=== PATIENT | female | born 1955 | race Caucasian/White ===

== ENCOUNTER 2017-12-15 13:14 | Outpatient (REF) | payer BC, SELFPAY ==
[2017-12-15 19:00] LABS: TSH (W/Ref FT4) 4.27 uIU/mL (0.358-3.74)
[2017-12-15 19:03] LABS: Hemoglobin A1C 7.1 % (4.5-6.2)
== END 2017-12-15 13:34 ==
LOC: NCHCN 13:14
PROVIDERS: PCP Nurse Practitioner; Visit Provider Nurse Practitioner
DX: E03.9 Hypothyroidism, unspecified (principal)
CPT/HCPCS: 83036; 84439; 84443

== ENCOUNTER 2018-07-13 12:40 | Outpatient (REF) | payer BC, SELFPAY ==
--- NOTE | 2018-07-13 12:00 | PAPFT_PTH ---
PATIENT: Shaina Puentes LOC: [facility] U#:[id number] AGE/SX: 63/F ROOM: RE07/13/[address]: Lian Ferreira : 1955 BED: DIS: 07/13/2018 SPEC #: [id number] RECD: 07/13/18 18:01 STATUS: TEDDY SLADE #: [id number] SHEELA: 07/13/18 12:[address]: Lian Ferreira DEPT: PENDING SALE TO [facility] Cytology RECD BY: Erma Meehan Tissues: 1 - CX/ENDOCX FOR PAP SMEARS Procedures: PAP THIN PREP/UVM Screening HPV DNA PROBE Comments: [id number]
== END 2018-07-13 13:00 ==
LOC: NCHCN 12:40
PROVIDERS: PCP Nurse Practitioner; Visit Provider Nurse Practitioner
DX: Z12.4 Encounter for screening for malignant neoplasm of cervix (principal); Z00.00 Encounter for general adult medical examination without abnormal findings; Z11.51 Encounter for screening for human papillomavirus (HPV)
CPT/HCPCS: 88142; 87624

== ENCOUNTER 2018-07-15 09:27 | Outpatient (REF) | payer BC, SELFPAY ==
[2018-07-15 21:21] LABS: ALT 30 U/L (12-78); AST 18 U/L (15-37); Albumin 3.9 g/dL (3.4-5.0); Alkaline Phosphatase 136 U/L (46-116); Anion Gap 12.9 mmol/L (3-11); BUN 19 mg/dL (7-18); Bilirubin, Total 0.5 mg/dL (0.2-1.0); CO2 25.1 mmol/L (21.0-32.0); CREATININE 0.63 mg/dL (0.55-1.02); Calcium 9.2 mg/dL (8.5-10.1); Chloride 102 mmol/L (98-107); Cholesterol 176 mg/dL (50-200); Glucose 165 mg/dL (70-100); HDL Cholesterol 40 mg/dL (40-60); LDL CHOLESTEROL 104 mg/dL (<100); Potassium 4.2 mmol/L (3.5-5.1); Sodium 140 mmol/L (136-145); Total Protein 7.5 g/dL (6.4-8.2); Triglyceride 151 mg/dL (30-150)
== END 2018-07-15 09:47 ==
LOC: NCHCN 09:27
PROVIDERS: PCP Nurse Practitioner; Visit Provider Nurse Practitioner
DX: E78.5 Hyperlipidemia, unspecified (principal); Z00.00 Encounter for general adult medical examination without abnormal findings
CPT/HCPCS: 80053; 80061; 83721

== ENCOUNTER 2018-08-09 01:29 | Outpatient (CLI) | payer BC, SELFPAY ==
--- NOTE | 2018-08-09 11:50 | DI.MAMMO_ITS ---
SYMPTOM/DIAGNOSIS: SCREENING, Z12.39 MAMMOGRAMS: Mammograms were interpreted according to the usual protocol including computer analysis with CAD system, tomosynthesis and C view imaging. Comparison is made with exams from [id number]. The breasts are composed of fatty density tissue, breast density, category A. No suspicious masses or suspicious microcalcifications are seen. There has been no significant change. IMPRESSION: Category 1. Negative mammogram. Yearly screening mammography is recommended. [facility] ASSESSMENT OF FINDINGS: Negative. Category 1. Patient will receive a letter notifying them of these results. BI-RAD category A. The breasts are almost entirely fatty.
--- NOTE | 2018-08-09 12:03 | DI.RAD_ITS ---
SYMPTOM/DIAGNOSIS: KNEE PAIN - JOINT, M25.569 RIGHT KNEE: The femoral tibial joint spaces are well maintained. There is mild to moderate periarticular spurring seen laterally at the tibial spine as well as patellofemoral joint. No joint effusion is visible. IMPRESSION: Mild to moderate degenerative changes.
--- NOTE | 2018-08-09 12:03 | DI.RAD_ITS ---
SYMPTOM/DIAGNOSIS: KNEE PAIN - JOINT M25.569 LEFT KNEE : Comparison is made with 13 Nov 2009. There is prominent spurring at the articular aspect of the patella. Loose bodies are seen in the suprapatellar space as well as posteriorly. There is severe narrowing of the lateral femoral tibial joint with prominent periarticular spurring. There is widening of the medial femoral tibial joint space creating valgus angulation. IMPRESSION: Severe degenerative changes of the lateral femoral tibial joint. Prominent spurring of the patellofemoral joint as well as joint space loose bodies.
== END 2018-08-09 01:49 ==
PROVIDERS: PCP Nurse Practitioner; Visit Provider Nurse Practitioner
DX: Z12.31 Encounter for screening mammogram for malignant neoplasm of breast (principal); M25.561 Pain in right knee; M25.562 Pain in left knee; M17.0 Bilateral primary osteoarthritis of knee
CPT/HCPCS: 73562; 77063; 77067

== ENCOUNTER 2018-09-08 13:13 | Outpatient (REF) | payer BC, SELFPAY ==
[2018-09-08 20:30] LABS: TSH (W/Ref FT4) 0.54 uIU/mL (0.358-3.74)
== END 2018-09-08 13:33 ==
LOC: NCHCN 13:13
PROVIDERS: PCP Nurse Practitioner; Visit Provider Nurse Practitioner
DX: E03.9 Hypothyroidism, unspecified (principal)
CPT/HCPCS: 84443

== ENCOUNTER 2018-11-08 06:14 | Day surgery (SDC) | payer BC, SELFPAY ==
[2018-11-08 06:14] VITALS: BP 145/89; PULSE 74; RESP 18; TEMP 36.5; O2SAT 99
--- NOTE | 2018-11-08 06:14 | ENDO_ITS ---
Date of service: 11/08/18 Time of Service: 07:49 Endoscopy Report DATE OF PROCEDURE: 11/08/18 PRE-OP DIAGNOSIS: Abdominal pain/ Hx of Heart Burn POST-OP DIAGNOSIS: other (mild gastritis and esophagitis, gastric polyp) PROCEDURE: EGD with biopsies SURGEON: Abril Valverde ANESTHESIA: other (General/ ASA2 /Behzad Ramos, ANGELIC) ESTIMATED BLOOD LOSS: 5 PATHOLOGY: other (Duodenal bx, Gastric bx, GE junction bx, polyp bx) COMPLICATIONS: None DISPOSITION: same day INDICATIONS: Mrs. Puentes is a 63 year old female with burning upper abdominal pain especially at night. She has had no relieve from TUMS, Zanatc and omeprazole. It is not related to food intake. Risks, benefits and complications have been reviewed. Complications include but are not limited to bleeding, pain, perforation, sore throat, aspiration, and adverse reaction to the medications. Questions were entertained and answered to their satisfaction and they wished to proceed. No guarantees were given or implied. FINDINGS: Mild Inflammation of the stomach and esophagus. Gastric polyp PROCEDURE DESCRIPTION: After informed consent was obtained the patient was take to the procedure room and placed in a supine position. Monitors were applied and a time out was done. The patients name, date of , procedure type, allergies to medications and metal in their body was reviewed. A bite block was placed and the patient was sedated. Once sedated and comfortable the gastroscope was advanced through the oropharynx which was grossly normal into the esophagus. The proximal and mid- esophagus were normal. In the distal esophagus there was mild inflammation noted. The scope was advanced into the stomach and through the pylorus into the 3rd portion of the duodenum. The duodenum was noted to be normal. Biopsies were done to rule out Celiac. The scope was retracted back into the stomach and biopsies were done to rule out H. pylori. There were no ulcers. There was mild to moderate inflammation. The scope was retro-flexed. The cardia and fundus were noted to be normal. There were a couple of flat polyps. The larger polyp was biopsied. There was no hiatal hernia noted. The scope was retracted back into the esophagus and biopsies were done of the GE junction to rule out Caballero's. The Z line was irregular. The GE junction was at 38 cm. There was mild inflammation of the esophagus. The scope was removed and the patient was woken up and taken back to [facility] in stable condition. Follow up: 2 weeks in the office
--- NOTE | 2018-11-08 06:16 | W.PM.HP.N ---
Date of service: 11/08/18 Assessment and Plan Assessment and plan (1) Abdominal pain: Status: Acute Assessment and plan: A\\ Abdominal pain, burning No improvement with antacids P\\ EGD under sedation Risks, benefits and complications have been reviewed. Complications include but are not limited to bleeding, pain, perforation, sore throat, aspiration, and adverse reaction to the medications. Questions were entertained and answered to their satisfaction and they wished to proceed. No guarantees were given or implied. Qualifiers: Abdominal location: upper abdomen, unspecified Qualified Code(s): R10.10 - Upper abdominal pain, unspecified History of Present Illness Narrative: Mrs. Puentes is a pleasant 63-year-old female who was referred to my office for upper abdominal pain. She has a history of heartburn which in the past she treated with Tums. Per primary care physician note she has tried Tums omeprazole ranitidine without any improvement in her symptoms. Patient states the pain is at nighttime when she lays on her left side. She describes the pain as a burning across her entire upper abdomen. Her pain is not related to food. She denies any nausea or vomiting. She denies weight loss, night sweats or changes in bowel habits. No changes in her health since she was seen. Review of Systems Cardiovascular Cardiovascular: Denies chest pain, Denies irregular heart rhythm, Denies palpitations and Denies dyspnea Respiratory Respiratory: Denies dyspnea Endocrine Endocrine: Denies palpitations [facility] Medical History Anxiety (Chronic) Asthma Vslmirz-Xmoec-Jdqxl disease pt. states MD does not think she has Diabetes type 2, controlled Diarrhea (Acute) Hx of bronchitis Hx of cardiac murmur diagnosed when Hyperlipidemia Hypertension Hypothyroid Neuropathy associated with Fzecaqq-Isrym-Myrqt syndrome Onychomycosis Pleural scarring chronic right chest Restless leg syndrome Tinea pedis Tubular adenoma of colon (Acute) Vitamin D deficiency Surgical History bone graft left hip Colonoscopy - MAC (08/17/17) Ligation of fallopian tube Open Carpal Tunnel release bilateral Social History Smoking/Tobacco Use Status: Former Tobacco Use Quit Date: 02/23/94 Alcohol Intake: current Alcohol Intake frequency: holidays/special occasions only Alcohol type: hard liquor Drug use: Never Substance use type: does not use Details: alcohol: t-60 Do you feel safe at home: Yes Do you feel safe in your relationship?: Yes Meds Home Medications and Allergies Home Medications Medication Instructions Recorded Confirmed Type cholecalciferol (vitamin D3) 1,000 unit PO DAILY tab.chew 06/26/15 11/08/18 History cyanocobalamin (vitamin B-12) 1,000 mcg PO DAILY 06/26/15 11/08/18 History pravastatin 20 mg PO HS tab-cap 06/26/15 11/08/18 History levothyroxine 125 mcg PO DAILY 11/15/16 11/08/18 History ropinirole 0.5 mg PO HS tab-cap NS 07/31/17 11/08/18 History losartan 25 mg tablet 25 mg PO DAILY 09/21/18 11/08/18 History acetaminophen 500 mg tablet 1,000 mg PO DAILY PRN tab 10/01/18 11/08/18 History metformin 1,000 mg tablet 1,000 mg PO BID tab 10/01/18 11/08/18 History celecoxib 100 mg capsule 100 mg PO BID #60 cap 10/22/18 11/03/18 Rx Allergies Allergy/AdvReac Type Severity Reaction Status Date / Time erythromycin base Allergy Intermediate Verified 11/08/18 06:46 Exam Resp Effort & Inspection: normal respiratory effort Auscultation: clear to auscultation bilaterally Cardio Rate: regular rate Rhythm: regular rhythm
--- NOTE | 2018-11-08 06:22 | W.PM.DSUDISC ---
Discharge Plan Disposition Patient Disposition: HOME Condition: Good Discharge Details Reason For Visit: EGD Attending Provider: Abril Valverde Primary Care Provider: Lian Ferreira Home Meds and New Rx's Prescriptions: New esomeprazole magnesium 40 mg capsule,delayed release(DR/EC) 40 mg PO DAILY Qty: 30 RF: 0 Continued losartan 25 mg tablet 25 mg PO DAILY RF: 0 acetaminophen [Tylenol Extra Strength] 500 mg tablet 1,000 mg PO DAILY PRNRF: 0 pravastatin 20 MG tablet 20 mg PO HS RF: 0 cholecalciferol (vitamin D3) 1,000 UNIT tablet,chewable 1,000 unit PO DAILY RF: 0 cyanocobalamin (vitamin B-12) 2,500 MCG tablet 1,000 mcg PO DAILY RF: 0 ropinirole 0.5 MG tablet 0.5 mg PO HS RF: 0 celecoxib [Celebrex] 100 mg capsule 100 mg PO BID Qty: 60 RF: 2 metformin [Glucophage] 1,000 mg tablet 1,000 mg PO BID RF: 0 levothyroxine 125 MCG tablet 125 mcg PO DAILY RF: 0 Discharge Instructions Instructions: Diet for Stomach Ulcers and Gastritis (GEN), Gastritis (DC), Esophagitis (DC) Additional Instructions: Findings: mild inflammation of the stomach and esophagus Follow up: 2 weeks Please call if you develop: fevers >101.5 Nausea or Vomiting Abdominal pain that is not transient DAY SURGERY UNIT POST ENDOSCOPY INSTRUCTIONS 1. Because there will be medication in your system for the next 24 hours, you may feel a little sleepy. Your coordination will be affected. Therefore: a. Do not drive or operate dangerous equipment for 24 hours. b. Do not drink alcohol beverages for 24 hours (not even beer). c. Plan to go home and rest for the day. 2. Generally there are no restrictions on your activity after a day or so has gone by, but you may feel a bit fatigued for a few days. 3 After you arrive home you may have a light meal and return to a normal diet as you can tolerate it without feeling sick to your stomach. 4. After surgery, you may feel pain or discomfort. This should be only transient, but if it persists please contact your doctor. 5. If there are any questions regarding the findings of your procedure, please feel free to contact your doctor. 6. If you are unable to contact your doctor with a problem, contact the hospital at [phone]. 5. Continue all your regular medications unless directed otherwise. I understand the above instructions and have no questions. Signature of Patient or Responsible Adult Escort Date/Time Name of Responsible Adult Escort Signature of Nurse Date/Time Activity:: Activity as Tolerated Diet:: low acid Discharge Orders Discharge Orders: Discharge Order (Routine); Ordered 11/08/18 Ordered By: Abril Valverde DS: Diagnosis Discharge Diagnosis (1) Abdominal pain: Status: Acute
[2018-11-08] MEDS: Lactated Ringers 1,000 ML 80 ML IV (07:05)
--- NOTE | 2018-11-08 07:38 | STOM_PTH ---
PATIENT: Shaina Puentes LOC: [facility] U#:[id number] AGE/SX: 63/F ROOM: RE11/08/[address]: Abril Valverde MD : 1955 BED: DIS: 11/08/2018 SPEC #: [id number] RECD: 11/08/18 12:49 STATUS: TEDDY RE #: [id number] HSEELA: 11/08/18 07:[address]: Abril Valverde DEPT: Surgical Specimen RECD BY: Erma Meehan ENTERED: 11/08/18 12:51 SP TYPE: STOMACH OTHR DR: Lian Ferreira Tissues: 1 - BIOPSY BOWEL 2 - STOMACH BIOPSY 3 - STOMACH BIOPSY 4 - ESOPHAGUS BIOPSY Procedures: GROSS AND MICRO LEVEL 4 Comments: [id number]
[2018-11-08 08:22] VITALS: BP 142/83; PULSE 79; RESP 18; TEMP 36.2; O2SAT 100
== END 2018-11-08 08:35 | disposition home or self-care (01) ==
PROVIDERS: PCP Nurse Practitioner; Visit Provider Surgery
PROC: 0DJ68ZZ Inspection of Stomach, Via Natural or Artificial Opening Endoscopic (ICD-10-PCS; CPT 43235; principal; 2018-11-08 07:30)
DX: R10.10 Upper abdominal pain, unspecified (principal); K31.89 Other diseases of stomach and duodenum; K31.7 Polyp of stomach and duodenum; K21.0 Gastro-esophageal reflux disease with esophagitis; I10 Essential (primary) hypertension; E11.42 Type 2 diabetes mellitus with diabetic polyneuropathy
CPT/HCPCS: 43239; 88305; NC

== ENCOUNTER 2019-03-07 12:50 | Outpatient (REF) | payer BC, SELFPAY ==
[2019-03-07 16:02] LABS: COMMENT (LAB VIEW ONLY) 160.99 mg/dL
== END 2019-03-07 13:10 ==
LOC: NCHCN 12:50
PROVIDERS: PCP Nurse Practitioner; Visit Provider Nurse Practitioner
DX: E11.9 Type 2 diabetes mellitus without complications (principal)
CPT/HCPCS: 82043; 82570

== ENCOUNTER 2019-07-21 14:47 | Outpatient (REF) | payer BC, SELFPAY ==
[2019-07-23 12:03] LABS: COVID-19 RT-PCR UVMMC Result Negative (Negative)
== END 2019-07-21 15:07 ==
LOC: NCHCN 14:47
PROVIDERS: PCP Nurse Practitioner; Visit Provider Nurse Practitioner Family
DX: Z11.59 Encounter for screening for other viral diseases (principal)
CPT/HCPCS: U0003

== ENCOUNTER 2020-02-16 00:37 | Outpatient (CLI) | payer MEDICAID, SELFPAY ==
--- NOTE | 2020-02-16 07:15 | DI.MRI_ITS ---
EXAM: MR LOWER JOINT RT WO CLINICAL HISTORY: OA RT KNEE, RT KNEE PAIN,M17.11. TECHNIQUE: Multiplanar multisequence MRI was performed. COMPARISON: No exams were available for comparison FINDINGS: BONES: There is no fracture or contusion pattern. JOINTS: In the lateral femoral tibial joint and the patellofemoral joint, there is subchondral marrow edema, thinning of the articular cartilage and periarticular spurring consistent with osteoarthritis . There is a subchondral cyst in the medial tibial plateau. There is a large joint effusion. TENDONS: Extensor mechanism: Unremarkable. Medial retinaculum: Unremarkable. Lateral retinaculum: Unremarkable. Popliteus: Unremarkable. MUSCLES: Unremarkable. MENISCI: The medial meniscus is unremarkable. There is hyperintense signal seen in the anterior horn and body of the lateral meniscus. There is loss of size of the anterior horn of the lateral meniscu s. These findings are seen of degeneration and tear. SOFT TISSUES: There is mild edema in the soft tissues anterior to the knee. LIGAMENTS: Anterior Cruciate: Unremarkable. Posterior Cruciate: Unremarkable. Medial Collateral:Unremarkable. Lateral Collateral: Unremarkable. OTHER: There is a large popliteal cyst. IMPRESSION: 1. Degenerative changes in the patellofemoral and lateral femoral tibial joint. 2. Findings consistent with degeneration and tear of the lateral meniscus. 3. Large popliteal cyst. 4. No evidence of a ligament tear. DATA REPOSITORY:
== END 2020-02-16 00:57 ==
PROVIDERS: PCP Nurse Practitioner; Visit Provider Student in an Organized Health Care Education/Training Program
DX: M17.11 Unilateral primary osteoarthritis, right knee (principal); M71.21 Synovial cyst of popliteal space [Baker], right knee
CPT/HCPCS: 73721

== ENCOUNTER 2020-03-08 14:17 | Outpatient (CLI) | payer MEDICAID, SELFPAY ==
--- NOTE | 2020-03-08 13:15 | DI.RAD_ITS ---
EXAM: XR ANKLE LT COMPLETE CLINICAL HISTORY: L ankle injury TECHNIQUE: COMPARISON: No exams were available for comparison FINDINGS: Three views were obtained. No prior films available for comparison. The ankle mortise appears fairl y well maintained. Mild marginal osteophyte formation noted involving the joints of the ankle. Ther e is an irregular calcific or ossific density adjacent to the tip of the medial malleolus, degenerati ve change versus new or old avulsion at this site, please correlate clinically. No additional findings suspicious for fracture. IMPRESSION: RADIATION DOSE DELIVERED: Total DLP
== END 2020-03-08 14:37 ==
PROVIDERS: PCP Nurse Practitioner; Referring Provider Nurse Practitioner; Visit Provider Physician Assistant
DX: S93.492A Sprain of other ligament of left ankle, initial encounter (principal)
CPT/HCPCS: 73610

== ENCOUNTER 2020-04-12 11:56 | Outpatient (CLI) | payer MEDICAID, SELFPAY ==
--- NOTE | 2020-04-12 10:00 | DI.RAD_ITS ---
EXAM: XR STANDING ALIGNMENT CLINICAL HISTORY: OA L knee surgical planning. TECHNIQUE: 2D digital imaging was performed. COMPARISON: CR XR knee RT 3V AP,lat,blaise from 08/09/2018 CR XR knee LT 3V AP,lat,blaise from 08/09/2018 CR XR knee RT 3V AP,lat,blaise from 08/09/2018 There are no fractures. Valgus deformity at level the knees noted. Significant narrowing of the lat eral compartment of the left knee is noted. Marginal osteophytes off the lateral compartments of bot h knees noted. Hips appear unremarkable. No osseous lesions evident. FINDINGS: IMPRESSION: DATA REPOSITORY: RADIATION DOSE DELIVERED:
== END 2020-04-12 11:57 | disposition home or self-care (01) ==
LOC: DIORS 11:57
PROVIDERS: PCP Nurse Practitioner; Referring Provider Nurse Practitioner; Visit Provider Physician Assistant
DX: M25.562 Pain in left knee (principal); M17.12 Unilateral primary osteoarthritis, left knee
CPT/HCPCS: 77073

== ENCOUNTER 2020-04-13 02:00 | Outpatient (CLI) | payer MEDICAID, SELFPAY ==
[2020-04-13 10:53] LABS: HCT 38.4 % (36.0-46.0); HGB 12.2 g/dL (11.2-15.7); MCH 29.1 pg (27.0-33.0); MCHC 31.8 % (32.0-36.0); MCV 91.6 fL (80-95); MPV 10.3 fL (8.0-11.0); Platelet Count 291 10^3/uL (130-400); RBC 4.19 10^6/uL (3.93-5.22); RDW 13.9 % (11.7-14.6); RDW-SD 47.1 fL; WBC 8.49 10^3/uL (4.4-10.8)
[2020-04-13 11:28] LABS: Anion Gap 10.4 mmol/L (3-11); BUN 14 mg/dL (7-18); CO2 29.6 mmol/L (21.0-32.0); CREATININE 0.6 mg/dL (0.55-1.02); Calcium 9.3 mg/dL (8.5-10.1); Chloride 101 mmol/L (98-107); Glucose 172 mg/dL (74-106); Potassium 4.3 mmol/L (3.5-5.1); Sodium 141 mmol/L (136-145)
[2020-04-13 12:02] LABS: Hemoglobin A1C 7.9 % (<5.7)
[2020-04-14 13:58] LABS: COVID-19 RT-PCR UVMMC Result Negative (Negative)
== END 2020-04-13 02:01 | disposition home or self-care (01) ==
LOC: LBO 02:00
PROVIDERS: Physician Assistant; PCP Nurse Practitioner; Visit Provider Student in an Organized Health Care Education/Training Program
DX: M25.562 Pain in left knee (principal); M17.12 Unilateral primary osteoarthritis, left knee; Z20.822 Contact with and (suspected) exposure to COVID-19; E11.9 Type 2 diabetes mellitus without complications; Z01.818 Encounter for other preprocedural examination; Z01.812 Encounter for preprocedural laboratory examination
CPT/HCPCS: 36415; 80048; 85027; U0003; 83036

== ENCOUNTER 2020-04-18 05:55 | Day surgery (SDC) | payer MEDICAID, SELFPAY ==
[2020-04-18] VITALS (14 sets, daily range): BP systolic 108–162; BP diastolic 66–111; PULSE 76–97; RESP 10–22; TEMP 36–36.4; O2SAT 91–98
[2020-04-18] MEDS: Acetaminophen 500 MG TAB 1000 MG PO ×2 (06:22→15:01)
[2020-04-18] MEDS: Celecoxib 200 MG CAP 400 MG PO (06:22)
[2020-04-18] MEDS: Gabapentin 300 MG CAP PO (06:22)
[2020-04-18] MEDS: Lactated Ringers 1,000 ML 30 ML IV (06:45)
--- NOTE | 2020-04-18 07:22 | PDOC.DSDIS_ITS ---
Discharge Plan Disposition Patient Disposition: HOME Condition: Good Discharge Details Reason For Visit: Left Knee DJD Attending Provider: Seymour Shields Primary Care Provider: Lian Ferreira Home Meds and New Rx's Prescriptions: New acetaminophen 500 mg tablet 1,000 mg PO Q8H PRN (Reason: pain) Qty: 90 RF: 3 aspirin 81 mg tablet,delayed release (DR/EC) 81 mg PO BID Qty: 60 RF: 0 docusate sodium [Colace] 100 mg capsule 100 mg PO BID PRNQty: 10 RF: 0 gabapentin 300 mg capsule 300 mg PO QHS Qty: 14 RF: 0 oxycodone 5 mg tablet 5 mg PO Q4H Qty: 18 RF: 0 pantoprazole 40 mg tablet,delayed release (DR/EC) 40 mg PO DAILY Qty: 30 RF: 0 naproxen 500 mg tablet 500 mg PO BID PRNQty: 60 RF: 0 Continued losartan 25 mg tablet 25 mg PO DAILY RF: 0 pravastatin 20 MG tablet 20 mg PO HS RF: 0 cholecalciferol (vitamin D3) 1,000 UNIT tablet,chewable 1,000 unit PO DAILY RF: 0 cyanocobalamin (vitamin B-12) 2,500 MCG tablet 1,000 mcg PO DAILY RF: 0 ropinirole 0.5 mg tablet 2 mg PO HS RF: 0 metformin [Glucophage] 1,000 mg tablet 1,000 mg PO BID RF: 0 levothyroxine 125 MCG tablet 125 mcg PO DAILY RF: 0 Discontinued acetaminophen [Tylenol Extra Strength] 500 mg tablet 1,000 mg PO DAILY PRNRF: 0 gabapentin 100 mg Tablet 100 mg PO QHS RF: 0 naproxen sodium [Aleve] 220 mg Capsule 220 mg PO BID PRNRF: 0 No Action tramadol 50 mg tablet 50 mg PO Q8H PRN (Reason: pain) Qty: 30 RF: 0 Discharge Instructions Additional Instructions: Total Knee Discharge Instructions Activity: The most important activity is to walk. You should try to take short walks a few times a day. It is important that when resting you work on keeping the knee straight. Avoid putting a pillow behind the knee as this will encourage flexion. Work on range of motion exercises as provided by Physical Therapy. - Start outpatient physical therapy within 2 weeks. - You should wear the RUSTY hose on both legs for 2 weeks. You may remove these at night. You may also use any compression sock in place of the RUSTY hose. Dressing: You may remove the Juan Antonio wrap on your leg 2 days after your surgery and put on the RUSTY stocking given to you from the hospital. Keep the surgical dressing (underneath the JUAN ANTONIO wrap) in place for at least one week. After the first week it may be removed and replaced with light gauze and tape or nothing. The wound and dressing may get wet after 3 days but avoid soaking the dressing or otherwise it will need to be changed. Many people prefer covering the dressing with cling wrap (saran wrap) to minimize it from getting soaked. If it gets wet, just pat dry. If it starts to peel off then it will need to be changed. Medications: - You should take Tylenol and anti-inflammatory Naproxen as your primary pain control medications. If the Celebrex is too expensive or not covered, please call the office for another alternative (Advil/Ibuprofen or Naproxen/Aleve) - You have been prescribed a stronger pain medication Oxycodone for breakthrough pain, take as needed as prescribed. - You have also been prescribed a stomach acid reduction agent Pantoprozole to help reduce stomach acid and reflux. - You have been prescribed Gabapentin 300mg to take at nighttime. This will replace your typical 100mg Gabapentin. After 2 weeks, when you have completed the 300mg dosing prescribed, you may return to the 100mg at bedtime - You will be taking Aspirin 81mg twice a day for DVT prevention unless instructed otherwise. - If you have constipation you should take Colace or Miralax (both [id number]). It takes most people 3-4 days to have a bowel movement. Follow-up: 2 weeks If you have any acute concerns or questions, please do not hesitate to contact the office at [phone]. You may contact Dr. Shields with any questions after hours through the hospital at [phone] or on his cell phone at [phone]. Stand Alone Forms: Anesthesia Discharge Inst., Anes.Nerve Block Instructions, DSU Post op Instructions, Tonya Morse (DSU) Referrals: Seymour Shields MD [ [facility] STAFF PHYSICIAN] - Equipment/Supplies: Walker Activity:: Elevate Shower/Bathe:: 72 hours Diet:: As Tolerated Discharge Orders Discharge Orders: Discharge Order (Routine); Ordered 04/18/20 Ordered By: Seymour Shields DS: Diagnosis Discharge Diagnosis (1) Unilateral primary osteoarthritis, left knee: Status: Chronic
[2020-04-18] MEDS: ceFAZolin 2 GM/50 ML BAG IVPB (07:39)
[2020-04-18] MEDS: Bupivacaine 0.25% Pres-Free 30 ML VIAL (08:14)
[2020-04-18] MEDS: Ketorolac 30 MG/ML VIAL (08:14)
[2020-04-18] MEDS: Normal Saline 20 ML VIAL (08:15)
[2020-04-18] MEDS: HYDROmorphone 2 MG/ML VIAL IVP ×3 (10:04→11:00)
--- NOTE | 2020-04-18 10:56 | ROE_ITS ---
Date of service: 04/18/20 Time of Service: 09:28 Operative Note Operative Note DATE OF PROCEDURE: 04/18/20 PRE-OP DIAGNOSIS: Left Knee Osteoarthritis POST-OP DIAGNOSIS: same PROCEDURE: Left Total Knee Replacement SURGEON: Seymour Shields VIRTUAL ASSISTANT FOR ADVERTISERS: Cassia Montalvo ANESTHESIA TYPE: Spinal Refer to Anesthesia Record ESTIMATED BLOOD LOSS: 200 PATHOLOGY: none sent TOURNIQUET TIME: 32 COMPLICATIONS: None Patient was transported to: PACU Patient's condition: stable Implants: 1. Depuy Attune Posterior Stabilized Femoral Component, Size 5 Narrow 2. Depuy Attune Rotating Platform Tibial Component, Size 3 3. Depuy Attune 5x8mm RP/PS Poly 4. Depuy Attune Patellar Component, Size 35mm Indications: I have seen Shaina in clinic for symptoms of LEFT knee arthritis, confirmed with radiographic findings. Shaina has exhausted nonoperative methods and was having significant limitations in daily function and desired better function and less pain. I discussed the technical details of a knee replacement. I explained the risks of the procedure to include, but not limited to, bleeding, infection, pain, stiffness, fracture, damage to nerves and vessels, damage to muscles and tendons, loosening, need for repeat procedure, blood clot and cardiopulmonary demise. Despite these risks, she elected to proceed. Findings: There was significant signs of arthritis throughout the knee, most notably of the posterolateral knee but there was also a full thickness defect of the medial femur.. Procedure Description: Shaina was greeted in the preoperative holding area where the correct side was identified and marked. The consent was reviewed with the patient and signed. The history and physical was updated. All questions were answered. Preoperative mediacations were administered: Acetaminophen 1000mg, Celebrex 400mg, and Gabapentin 300mg. An adductor canal block was then administered by the anesthesia team in the PACU. Shaina was taken back to the operating room. A spinal anesthestic was then administered. The patient was placed into the supine position on the operating room table. A nonsterile tourniquet was placed high onto the leg but only used for cementing. Posts were placed for positioning during the procedure. All bony prominences were well padded. Prophylactic antibiotics in the form of Cefazolin were administered. 1g of Tranxemic Acid was given intravenously within 30 minutes of incision. The left leg was then prepped with Chloraprep and draped in a standard fashion with impervious stockinette and extremity drape with Iodine impregnated skin protection. A timeout to confirm correct identity, side and site, procedure, allergies, anesthesia, and medical concerns was performed. With the knee in some flexion, a midline incision was made overlying the knee. Full thickness skin flaps were raised once the extensor mechanism was encountered. These were raised medially and laterally. Any bleeding was controlled with electrocautery. Once the extensor mechanism was fully exposed, a medial parapatellar arthrotomy was performed in a flexed position. All bleeding from the arthrotomy and the geniculate arteries was coagulated. A medial subperiosteal peel was performed with electrocautery to the midcoronal plane. The fat pad was removed while keeping the patellar tendon protected. The anterior distal femur synovium was removed for later visualization. The ACL and PCL were resected and the anterior horn of the lateral meniscus was transected. The knee was then flexed with the patella everted. Large osteophytes from the tibia were removed. Large osteophytes from the femur were removed. There was notable arthritis of the lateral tibia and there was also a full thickness chondral defect. A single starting pin was then placed 1cm anterior to the PCL insertion and the notch in the direction of the femoral head. The OrthoAlign device was applied over the pin. It was oriented to be in line with the epicondylar axis and the trochlear groove. It was then pinned into place. The navigation computer was then turned on and calibrated. The distal femur cut was set at 0 degrees varus/valgus and 2.5 degrees flexion. The distal femur cutting guide then was positioned for a 9mm cut. The distal femur was cut with an oscillating saw while protecting the soft tissues. The tibia was then addressed. The OrthoAlign device was placed over the tibial tubercle and medial tibia and secured into position. Once again, OrthoAlign was calibrated and then set for a 0 degree varus/valgus cut and 3 degrees of po sterior slope. With this locked into position, the cut thickness stylus was used to assess cut thickness. The lateral side, most involved side, was set for a 4mm cut. This was then held in position and pinned into place with 2 additional pins and a cross pin for stability. The medial and lateral collateral ligaments were protected and the cut was performed. With this completed, it was assessed and noted to be of appropriate dimensions. The guide and OrthoAlign was removed. A spacer block was inserted and the knee was brought into extension. The 7mm spacer block provided full extension, without hyperextension and with stability of both the medial and lateral collateral ligaments was assessed. The pins from the femur and the tibia were then removed. The distal femur was then sized. The anterior stylus was placed onto the lateral ridge of the anterior femur. This indicated a size 5 narrow femur. The external rotation of the guide was adjusted to 0 degrees to match the epicond ylar axis, perpendicular to Allardt?s line. The 4-in-1 cutting guide was the placed. The posterior medial femur cut was evaluated and appeared of good thickness. The spacer block was inserted underneath the cutting guide and stability was confirmed in 90 degrees of flexion. An grant wing was used to confirm appropriate position of the anterior cut to avoid notching. This cutting guide was ensured to be flush on the cut surface and then pinned into place with headed pins. While protecting the soft tissues, quad tendon, and collateral ligaments, the anterior and posterior cuts were performed with a saw. The central two pins were removed and the posterior and anterior chamfers were cut next. The notch-cutting guide was placed. This was pinned to lateralize the femoral component as much as possible while keeping it flush on the cut surface. This was then pinned into position. A reciprocating saw was used to make the notch cut. A rasp smoothed the cut surfaces. A trial posterior stabilized femoral component was then inserted, impacted down to the cut surfaces, and the lug holes were drilled. A provisional trial tibial component was placed and the knee was brought through range of motion. The polyethylene was trialed until there was good flexion and extension with excellent stability to the medial and lateral collaterals. The patella was tracking without thumbs. The tibial cut surface was fully exposed. The medial and lateral menisci were removed. The tibia was then sized as a 3. The tibia had been previously marked during trialing to correspond to the center of the tibial component to help with rotation. The trial was aligned to this cassia, approximately rotated to the medial 1/3rd of the tibial tubercle. The trial was pinned into place. The tibia was prepared with a reamer and a keel punch. The knee was then brought into extension and the patella was measured as 23mm. Using the patellar clamp and cut guide, this was resected to a flat surface with at least 13mm of thickness remaining. The size 35 patella fit the best. This was oriented and then clamped into position. The lugs were drilled. The trial components were removed. The final components, except for the polyethylene were opened on the back table. The periosteal and capsular tissues, especially posteriorly, around the knee were then systematically injected with a periarticular cocktail consisting of 50cc 0.25% Marcaine, 30mg Ketorolac, 20cc of Exparal and 50cc of injectable saline. The tourniquet was then inflated to 275mmHg. The knee was thoroughly irrigated with a pulse lavage and dried. On the back table, with the implants opened, the cement was mixed. 2 batches of antibiotic laden medium viscosity cement were prepared with vacuum assistance. After the cement was ready a small amount was placed on to the back side of the tibial component at the keel. A small amount was placed onto the posterior flange of the femur. Cement was manual pressurized and impregnated into the cut surface of the tibia. The tibial component was then inserted into the cut surface and impacted into position. Excess cement was removed and the component was reimpacted. Again, excess cement was removed and our attention was then turned to the femur. The femoral cut surface was once again dried and cement was manually impacted into the cut surface. The femoral component was lined with the lug holes and impacted. Excess cement was removed. It was ensured to be down against the cut surface. The trial polyethylene was then inserted and the leg was brought out into full extension for the duration of the cement curing process, approximately 18min. Cement was lastly manually impacted into the cut surface of the patella and the patellar button was clamped into position and held. During this process attention was turned to the gutters of the knee and for all interfaces for any excess cement. After the cement had finally cured, approximately 18min, the clamp was removed from the patella and the knee was taken through range of motion. A size 8mm polyethylene component provided the best range of motion and stability with less than 2mm gapping with medial and lateral stress and full extension without significant hyperextension. The patella was tracking with a no-thumbs technique. The trial poly was removed and once again the knee was checked for any loose, excess, or errant cement. The poly component was then inserted and impacted into position after cleaning and drying the tibial tray. The capsule was then reapproximated with a No. 1 Vicryl at multiple locations. The capsule was finally closed with a No. 2 Stratafix, barbed suture. The tourniquet was then released and the arthrotomy appeared watertight without significant bleeding. The second dosing of 1g TXA was started. Deep tissues were then reapproximated with 0 Vicryl and 2-0 Vicryl. The skin was closed with a running 3-0 Monocryl in a subcuticular fashion. This was reinforced with skin glue. A Mepilex silver dressing was applied along with a [id number] ELMER wrap. A CryoCuff was applied. Shaina was transferred to the hospital bed without difficulty an suffering no apparent complication. Shaina has a good prognosis. Physical therapy will start today and without restrictions, weight-bearing as tolerated. Aspirin 81mg BID will be used for DVT prophylaxis.
--- NOTE | 2020-04-18 11:10 | IN_ITS ---
Date of service: 04/18/20 Time of Service: 13:10 PT Notes Visit Reasons: Left Knee DJD Physical Therapy Day Surgery Initial Evaluation Date: 04/18/2020 Referring Doctor: Seymour Shields MD PT Orders: PT CONSULT: Status post Ortho surgery. Status post left TKA. Precautions: WBAT on left LE. Patient Profile/Admitting Diagnosis: Shaina is a 65-year-old female with unilateral primary osteoarthritis of the left knee and is status post left total knee arthroplasty on postoperative day 0. PMHX: Medical History Anxiety Asthma Bxgewgh-Opydm-Elyde disease pt. states MD does not think she has Diabetes type 2, controlled Diarrhea Hx of bronchitis Hx of cardiac murmur diagnosed when Hyperlipidemia Hypertension Hypothyroid Neuropathy associated with Gmsmyas-Iddmx-Rricr syndrome Onychomycosis Osteoarthritis of right knee Injection: 12/15/2019 Pleural scarring chronic right chest Restless leg syndrome Tinea pedis Tubular adenoma of colon Vitamin D deficiency Surgical History bone graft left hip Colonoscopy - MAC (08/17/17) Ligation of fallopian tube Open Carpal Tunnel release bilateral Social History/Home Situation: Shaina lives in a private home with 3 steps to enter with a rail on the right side going up. 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 Independent with all mobility ADL performance prior to surgery. Equipment Owned/DME: Front wheeled walker, bilateral axillary crutches, single- point cane Subjective: Agreeable to PT consult. Denies headache, chest pain, dizziness throughout session. Reports pulling sensation on the left lateral and posterior leg during ambulation activity. Objective: General Observation: Supine on stretcher. ELMER wraps on left LE. Cryocuff on left knee. TEDS on right leg. IV access in L UE. Mental Status: Alert and oriented x4 Pain: None ROM: Right Upper Extremity: Shoulder Flexion WFL. Shoulder abduction WFL. Elbow flexion WFL. Wrist flexion WFL. Functional opening and closing of hand WFL. Left Upper Extremity: Shoulder Flexion WFL. Shoulder abduction WFL. Elbow flexion WFL. Wrist flexion WFL. Functional opening and closing of hand WFL. Right Lower Extremity: Hip flexion WFL. Hip abduction WFL. Knee flexion WFL. Ankle dorsiflexion WFL. Ankle plantarflexion WFL. Left Lower Extremity: Hip flexion WFL. Hip abduction WFL. Knee flexion 10 degrees to 95 degrees. Knee extension -10 degrees. Ankle dorsiflexion to neutral only. Ankle plantarflexion WFL. Strength: Right Upper Extremity: Shoulder flexors 4/5. Shoulder abductors 4/5. Elbow flexors 4/5. Elbow extensors 4/5. [facility] strong. Left Upper Extremity: Shoulder flexors 4/5. Shoulder abductors 4/5. Elbow flexors 4/5. Elbow extensors 4/5. [facility] strong. Right Lower Extremity: Hip flexors 5/5. Hip abductors 5/5. Knee flexors 5/5. Knee extensors 5/5. Ankle dorsiflexors 5/5. Ankle plantarflexors 5/5. Left Lower Extremity:Hip flexors 4/5. Hip abductors 4/5. Knee flexors 3-/5. Knee extensors 3-/5. Ankle dorsiflexors 3-/5. Ankle plantarflexors 5/5. Sensation: Denies numbnessa and tingling. Intact as to pain and light touch on bilateral lower extremities. Bed Mobility/Transfers: Supine to sit independent Sit to stand supervision Stand to sit supervision Bed to chair supervision Gait: Guided patient through level surface ambulation of 200 feet +100 feet using front wheel walker with step through heel?toe gait pattern requiring only standby assist of PT and nurse Linn. Reported a pulling sensation on the lateral and posterior left knee that subsided with rest. Stairs: Training patient with safe strategies for negotiating gait 6 inch steps with the right hand holding onto the rail on the right going up and with the left UE supported by crutches (vice versa for going down) requiring contact- guard assist of PT and standby assist Nurse Linn and Nurse Chowdhury. Balance: Static Sitting: Normal Dynamic Sitting: Normal Static Standing: Fair Dynamic Standing: Fair Special Tests: Mobility Limitations Standardized Measure [facility] AM-PAC 6 clicks Basic Mobility Inpatient Short Form: Raw Score: 23 CMS Score: 11% deficit Informed Consent/Education: Patient instructed in purpose of PT consult. Packet containing TKA exercise protocol has been given to patient. Education and training on initial set of exercises that can be done at home have been completed with patient. Assessment: Shaina demonstrates the need for the use of a front wheel walker for all mobility ADL performance to increase independence and reduce fall risk at home. She will benefit from outpatient PT services to facilitate return to independent community ambulation without assistive device. Patient presents with clinical signs and symptoms consistent with current/admitting diagnoses that have resulted to mobility limitations, gait instability, generalized weakness, and impairment of motor control as demonstrated by the following impairment level findings: 1. Decreased strength to left knee major muscle groups 2. Impaired standing balance 3. Limitation of joint range of motion in left knee Impairments are contributing to the following functional limitations: 1. Inability to safely ambulate without assistive device 2. Increase completion time for mobility ADL performance Patient is assessed as a 91373 moderate complexity based on the following: History: 65 kaznxgar-wrti-ksq female with impairment level findings, functional limitations, and past medical history as indicated above Examination: Demonstrable impairment in strength, balance, and mobility level with underlying impairments and functional limitations as documented above Presentation: Decision Makin moderate complexity Goals: N/A. PT evaluation and 1-2 treatment sessions only for functional mobility training using recommended AD and for HEP instruction. Plan of Care/Treatment Plan: N/A. PT evaluation and 1-2 treatment sessions only for functional mobility training using recommended AD and for HEP instruction. PT INTERVENTION RECEIVED TODAY: Assessment for and fitting of appropriate assistive device. Guided patient through bed mobility, transfers, and mobility ADL performance on level surfaces and stairs using front wheeled walker and single crutch in order to reduce fall risk. Educated and trained patient on HEP performance to maximize post-surgical functional outcomes. Educated on the use of Cryocuff device. DISCHARGE RECOMMENDATIONS: Home when medically cleared by orthopedic surgeon. Outpatient PT services to facilitate to independent community ambulation without an assistive device. TREATMENT CODE/TIME: 51885 x 30 minutes, 29700 x3 3 minutes beginning at 13:10 PM. Thank you for the opportunity to participate in the care of this patient. Gayatri Haynes PT, DPT, CLT [facility] [place], [place]
== END 2020-04-18 16:15 | disposition home or self-care (01) ==
PROVIDERS: PCP Nurse Practitioner; Visit Provider Student in an Organized Health Care Education/Training Program
PROC: (CPT 27447; principal; 2020-04-18 07:30)
DX: M17.12 Unilateral primary osteoarthritis, left knee (principal); M25.562 Pain in left knee; Z96.652 Presence of left artificial knee joint; G89.18 Other acute postprocedural pain; E11.9 Type 2 diabetes mellitus without complications; K21.9 Gastro-esophageal reflux disease without esophagitis
CPT/HCPCS: 27447; C1776; 76942; 97162; 97530; J0690; J1100; J1885; J2001; J2405; J2704

== ENCOUNTER 2020-05-03 15:36 | Outpatient (CLI) | payer MEDICAID, SELFPAY ==
--- NOTE | 2020-05-03 14:15 | DI.RAD_ITS ---
EXAM: XR STANDING ALIGNMENT and XR knee left one-view CLINICAL HISTORY: 1ST POST OP L TKA. TECHNIQUE: 2D digital imaging was performed. COMPARISON: CR XR STANDING ALIGNMENT from 04/12/2020 CR XR KNEE LT 1V from 05/03/2020 FINDINGS: Since the prior examination the patient has undergone a left total knee replacement. The hips are we ll maintained. The left total knee replacement appears in good position. The soft tissues are unrem arkable. Mild degenerative changes are seen in the right knee with periarticular spurring in the lat eral femoral tibial joint. The right lower extremity measures 84.5 cm. The left lower extremity elif sures 83.4 cm. IMPRESSION: Status post left TKR. DATA REPOSITORY: RADIATION DOSE DELIVERED:
== END 2020-05-03 15:37 | disposition home or self-care (01) ==
LOC: DIORS 15:36
PROVIDERS: PCP Nurse Practitioner; Referring Provider Nurse Practitioner; Visit Provider Physician Assistant
DX: Z96.652 Presence of left artificial knee joint (principal)
CPT/HCPCS: 73560; 77073

== ENCOUNTER 2020-09-05 13:07 | Outpatient (REF) | payer MEDICAID, SELFPAY ==
[2020-09-05 14:52] LABS: HCT 38.3 % (36.0-46.0); HGB 11.8 g/dL (11.2-15.7); MCH 28.1 pg (27.0-33.0); MCHC 30.8 % (32.0-36.0); MCV 91.2 fL (80-95); MPV 11.1 fL (8.0-11.0); Platelet Count 282 10^3/uL (130-400); RDW 15.9 % (11.7-14.6); RDW-SD 52.7 fL
[2020-09-05 15:17] LABS: ALT 33 U/L (14-59); AST 23 U/L (15-37); Alkaline Phosphatase 136 U/L (46-116); Anion Gap 8.9 mmol/L (3-11); BUN 10 mg/dL (7-18); Bilirubin, Total 0.4 mg/dL (0.2-1.0); CO2 29.1 mmol/L (21.0-32.0); CREATININE 0.6 mg/dL (0.55-1.02); Calcium 9.5 mg/dL (8.5-10.1); Chloride 104 mmol/L (98-107); Ferritin 23 ng/mL (8-252); Glucose 147 mg/dL (74-106); NT-proBNP 15 pg/mL (<300); Potassium 4.2 mmol/L (3.5-5.1); Sodium 142 mmol/L (136-145); TSH (W/Ref FT4) 9.75 uIU/mL (0.36-3.74); Total Protein 7.5 g/dL (6.4-8.2)
[2020-09-05 20:15] LABS: COMMENT (LAB VIEW ONLY) 73.02 mg/dL; Microalb ug/mg Crea 26.4 ug/mg Cr
[2020-09-06 09:37] LABS: HIV-1/2 Ag & Ab Screen Negative (Negative)
[2020-09-06 10:38] LABS: Hepatitis C Ab w Rflx HCV PCR Negative (Negative)
== END 2020-09-05 13:08 | disposition home or self-care (01) ==
LOC: NCHCN 13:07
PROVIDERS: PCP Nurse Practitioner; Visit Provider Family Medicine
DX: R06.00 Dyspnea, unspecified (principal); E11.9 Type 2 diabetes mellitus without complications; E03.9 Hypothyroidism, unspecified
CPT/HCPCS: 80053; 85027; 86803; 87389; 82043; 82570; 82728; 83880; 84439; 84443

== ENCOUNTER 2020-09-14 01:51 | Outpatient (CLI) | payer MEDICAID, SELFPAY ==
[2020-09-14] MEDS: Albuterol HFA 18 GM 200 PUFF INH IH (08:49)
[2020-09-14] MEDS: Inhaler, Assist Device 1 EACH MC (08:50)
--- NOTE | 2020-09-14 15:31 | W.PFT ---
Date of service: 09/14/20 Time of Service: 08:16 Pulmonary Function Test Result Interpretation Spirometry: There is no airflow limitation. There is a reduced FVC and FEV1. There is no significant improvement with bronchodilator therapy. Lung Volumes: There is mildly reduced lung volumes. Diffusion Capacity: Diffusion is within normal limits. Airway Pressure: Airway resistance as measured by sGaw is within normal limits. Impression Pulmonary function testing is consistent with mild restrictive disease. Recommend clinical correlation.
== END 2020-09-14 01:52 | disposition home or self-care (01) ==
PROVIDERS: PCP Nurse Practitioner; Visit Provider Student in an Organized Health Care Education/Training Program
DX: J92.9 Pleural plaque without asbestos (principal); R06.09 Other forms of dyspnea; J98.4 Other disorders of lung
CPT/HCPCS: 94060; 94726; 94729

== ENCOUNTER 2020-09-17 00:53 | Outpatient (CLI) | payer MEDICAID, SELFPAY ==
--- NOTE | 2020-09-17 07:00 | DI.CT_ITS ---
Exam(s) CT CHEST W EXAM: CT CHEST W CLINICAL HISTORY: Assess right sided pleural thickening ?fibrothorax,DYSPNEA ON EXERTION,. TECHNIQUE: Multi planar reconstructions were performed. CONTRAST MATERIAL: Omnipaque 350; 70 cc COMPARISON: CR CHEST 2 VIEWS PA,LAT from 11/15/2016 FINDINGS: CHEST: LUNGS: There is significantly decreased right hemithoracic volume and heavily calcified pleural plaqu e on the right side is again noted, as seen on chest x-ray of October 2016. There is also pleural- based density in the right lower lobe extending from the inferior aspect of the hilum out to the calc ified pleural surface. This measures 1.9 cm wide by 3.9 cm. This may represent rounded atelectasis in the right lung base. On the opposite-left side there is pulmonary hyperinflation-over expansion/compensatory. There are n o cysts seen focal abnormalities evident in left lung. No pleural effusions MEDIASTINUM: There is no hilar nor mediastinal adenopathy. Visualized thyroid unremarkable. CARDIAC: Heart size is normal. There is no pericardial effusion.Thoracic aortic caliber is within no rmal limits. Sending thoracic aorta measures 3.1 cm. No dissection. VISUALIZED UPPER ABDOMEN:There are no significant adrenal masses. Hepatic steatosis noted. OSSEOUS: No significant osseous lesions.. IMPRESSION: 1. Findings on the CT scan are similar to chest x-ray findings of 11/15/2016. There is decreased rig ht hemithoracic volume and right pleural thickening and heavy calcification as well as mass versus ro unded atelectasis in the right lung base. 2. Compensatory overinflation left lung noted. No focal left lung findings and no pleural effusion n o pleural findings in left lung. 3. Hepatic steatosis. RADIATION DOSE DELIVERED: 482.83mGy.cm Total DLP DATA REPOSITORY: All CT scans at this facility are submitted to the National Radiology Data Registry (NRDR) Dose Index Registry (DIR) with the [employer] (A[employer]). RADIATION OPTIMIZATION: All CT scans at this facility use at least one of these dose optimization te chniques: automated exposure control; mA and/or kV adjustment per patient size (includes targeted exa ms where dose is matched to clinical indication); or iterative reconstruction.
[2020-09-17] MEDS: Omnipaque 350 MG/ML 100 ML BTL 70 ML IJ (08:56)
[2020-09-17] MEDS: Normal Saline - Diluent 50 ML VIAL IV (08:57)
== END 2020-09-17 01:13 ==
PROVIDERS: PCP Nurse Practitioner; Visit Provider Student in an Organized Health Care Education/Training Program
DX: R06.00 Dyspnea, unspecified (principal); K76.0 Fatty (change of) liver, not elsewhere classified
CPT/HCPCS: 71260; J3490

== ENCOUNTER 2020-09-18 01:59 | Outpatient (CLI) | payer MEDICAID, SELFPAY ==
--- NOTE | 2020-09-18 07:45 | DI.US_ITS ---
APPROVED REPORT EXAM: Comprehensive 2D, Doppler, and color-flow Echocardiogram Patient Location: Out-Patient Surg Nurse: Lo Jackson RDCS (AE) Indications: Dyspnea on exertion, Ankle swelling Other Information Study Quality: Fair. Technically limited study due to body habitus. Conclusion Left Ventricle : The left ventricle is normal size. The left ventricular systolic function is normal. The left ventricular ejection fraction is within the normal range. There is normal left ventricular wall thickness. There is normal LV segmental wall motion. The left ventricular diastolic function is normal. LVEF is 60%. Right Ventricle : Right ventricle is grossly normal in size. Right ventricular systolic function is g rossly normal. Atria : The left atrium size is normal. The right atrium size is normal. Valves: There are no hemodynamically significant valvular lesions. Great Vessels : The aortic root is normal in size. The ascending aorta is mildly dilated. IVC is norm al in size and collapses >50% with inspiration. Please see remainder of study for further details. Wall motion Left Ventricle The left ventricle is normal size. The left ventricular systolic function is normal. The left ventric ular ejection fraction is within the normal range. There is normal left ventricular wall thickness. T here is normal LV segmental wall motion. The left ventricular diastolic function is normal. There is no ventricular septal defect visualized. LVEF is 60%. Right Ventricle Right ventricle is grossly normal in size. Right ventricular systolic function is grossly normal. Atria The left atrium size is normal. The right atrium size is normal. The interatrial septum is intact wit h no evidence for an atrial septal defect. Aortic Valve The aortic valve is normal in structure. Aortic valve is probably trileaflet. There is no aortic valv ular stenosis. No aortic regurgitation is present. Mitral Valve The mitral valve is normal in structure. No evidence of mitral valve stenosis. Trace mitral regurgita tion. Tricuspid Valve The tricuspid valve is normal in structure. There is no tricuspid valve stenosis. Trace tricuspid reg urgitation. Unable to assess PA pressure. Pulmonic Valve The pulmonary valve is normal in structure. There is no pulmonic valvular stenosis. There is no pulmo magy valvular regurgitation. Great Vessels The aortic root is normal in size. The ascending aorta is mildly dilated. IVC is normal in size and c ollapses >50% with inspiration. Pericardium There is no pericardial effusion. 2D Dimensions IVSD d PLAX 0.99 cm F: 0.6-1.0 LV Vol A2C d MOD 61.2 mL LVPW d PLAX 0.94 cm F: 0.6 - 1.0 LV Vol A4C d MOD 82.7 mL LVID d PLAX 3.51 cm F: 3.8 - 5.2 LA vol/ BSA A2C s A-L 16.7 mL/m2 LVDs 2.50 cm F: 2.2 - 3.5 LA vol/ BSA A4C s A-L 23.2 mL/m2 Ao Root d 2.60 cm F: 2.7 - 3.3 LA Vol/ BSA Biplane s A-L 20.6 mL/m2 RA Area A4C 10.45 cm2 LA Area A4C s MOD 15.14 cm2 RA Vol/ BSA A4C s A-L 12.6 mL/m2 LA Area A2C s MOD 12.26 cm2 Ao Asc Diam d 3.34 cm F: 2.3 - 3.1 LV EF A4C MOD 59.8 % LV EF Teichholz 55.5 % LV EF A2C MOD 59.9 % LVEF (El's) 60.07 % F: 54 - 74 LV EF Biplane MOD 60.1 % LV Volume 55.93 mL F: 46 - 106 SV 43.03 mL LV Volume Index 31.42 mL/m2 F: 29 - 61 SV Index 24.17 mL/m2 LV Vol Biplane MOD 71.6 mL FS 28.10 % M-Mode TAPSE 2.03 cm (M/F) >1.7 LV Diastology MV E' medial 0.101 (>0.07 m/s) E/A Ratio 1.1 LV E/e MED 7.45 (<14) MV E Vmax 0.75 (0.4-1.3 m/s) MV E' lateral 0.119 (>0.1 m/s) MV A Vmax 0.70 (0.4-1.3 m/s) LV E/e LAT 6.30 (<14) MV E/A Ratio 1.04 MV E/E' medial 7.48 MV E/E' lateral 6.31 Aortic Valve LVOT Area 2.55 cm2 AoV Area Vmax 1.89 cm2 LVOT Vmax 1.11 m/s AoV Area/ BSA (Vmax) 1.06 cm2/m2 LVOT Mean Darius. 0.69 m/s BREANNE Mean Darius. 1.63 cm2 LVOT Peak Grad 5.0 mmHg BREANNE Mean Darius. Index 0.91 cm2/m2 LVOT Mean Grad 2.2 mmHg LVOT VTI 0.207 m LVOT Diam s 1.80 cm AoV Vmax 1.51 m/s Velocity Ratio 0.73 AoV Mean Darius. 1.09 m/s AoV Peak Grad 9.1 mmHg LVOT SV 52.85 mL AoV Mean Grad 5.2 mmHg AoV VTI 0.334 m AoV Area VTI 1.58 cm2 AoV Area/ BSA (VTI) 0.89 cm/m2 Mitral Valve MV DT 261 (160-240 msec) MV PHT 76 msec MV Area PHT 2.91 cm2 MV VTI 0.233 m MV Area VTI 2.27 (4.0-6.0 cm2) Pulmonary Valve PV Vmax 0.66 (0.5-1.5 m/s) RVOT Peak Gr. 0.99 mmHg PV Peak Grad 1.8 mmHg RVOT Mean Gr. 0.55 mmHg PV Mean Grad 1.1 mmHg RVOT VTI 0.108 m PV VTI 0.202 m RVOT Vmax 0.50 m/s
== END 2020-09-18 02:19 ==
PROVIDERS: PCP Nurse Practitioner; Visit Provider Student in an Organized Health Care Education/Training Program
DX: R06.09 Other forms of dyspnea (principal); R60.0 Localized edema; I77.810 Thoracic aortic ectasia
CPT/HCPCS: 93306

== ENCOUNTER 2020-09-27 01:42 | Outpatient (CLI) | payer MEDICAID, SELFPAY ==
--- NOTE | 2020-09-27 | DI.MAMMO_ITS ---
Exam(s) MAMMO SCREENING EXAM: MAMMO SCREENING CLINICAL HISTORY: SCREENING, PREVENTIVE [facility] CARE,Z00.00. TECHNIQUE: Bilateral full field digital CC and MLO mammographic images were obtained with 3D tomosyn thesis and utilizing computer aided detection (CAD). COMPARISON: Prior mammograms dating back to 2011, the most recent being July 2018. FINDINGS: Nodular densities in both breasts remain unchanged from prior studies. There are no new spiculated masses nor malignant appearing microcalcification groups. There is no significant architectural distortion nor skin thickening-retraction. IMPRESSION: Stable benign findings. No radiographic evidence of malignancy. BI-RADS Category 2 - Benign Findings Breast Density - Category B - Scattered areas of fibroglandular density Breast density Category C or D implies that the patient has dense breast tissue. Dense breast tissue can make it harder to find cancer on a mammogram. Dense breast tissue is also associated with an incr eased risk of breast cancer. This information about the result of the mammogram report was provided to the patient to raise their awareness. Use this report when you speak with the patient about their risks for breast cancer, which includes their family history. At that time, you may recommend additional screening tests (Ultrasoun d or MRI) as these tests may add significant information. A negative radiographic report should not delay biopsy if a dominant or clinically suspicious mass is present. Up to ten percent of cancers are not identified on mammography. A negative report may reinforce clinical impression. Adenosis and dense breasts may obscure an underlying neoplasm. False positive reports average 6 to 10%. Patient will receive a letter notifying them of these results.
== END 2020-09-27 02:02 ==
PROVIDERS: PCP Nurse Practitioner; Visit Provider Family Medicine
DX: Z12.31 Encounter for screening mammogram for malignant neoplasm of breast (principal); Z00.00 Encounter for general adult medical examination without abnormal findings
CPT/HCPCS: 77063; 77067

== ENCOUNTER 2020-12-03 10:22 | Outpatient (REF) | payer MEDICAID, SELFPAY ==
[2020-12-04 14:30] LABS: COVID-19 RT-PCR UVMMC Result Negative (Negative)
== END 2020-12-03 10:23 | disposition home or self-care (01) ==
LOC: LBN 10:22
PROVIDERS: PCP Nurse Practitioner; Visit Provider Physician Assistant
DX: Z20.822 Contact with and (suspected) exposure to COVID-19 (principal); J06.9 Acute upper respiratory infection, unspecified
CPT/HCPCS: U0003

== ENCOUNTER 2020-12-27 14:09 | Outpatient (REF) | payer MEDICAID, SELFPAY ==
[2020-12-27 15:56] LABS: Hemoglobin A1C 7.5 % (<5.7)
[2020-12-27 16:15] LABS: Vitamin D 25 Total 27.3 ng/mL (30-100)
[2020-12-27 16:22] LABS: Ferritin 28 ng/mL (8-252); Vitamin B12 343 pg/mL (193-986)
[2020-12-27 16:47] LABS: FREE T4 1.04 ng/dL (0.76-1.46)
== END 2020-12-27 14:10 | disposition home or self-care (01) ==
LOC: NCHCN 14:09
PROVIDERS: PCP Nurse Practitioner; Visit Provider Family Medicine
DX: E11.9 Type 2 diabetes mellitus without complications (principal); R53.83 Other fatigue; E78.5 Hyperlipidemia, unspecified; E55.9 Vitamin D deficiency, unspecified; E53.8 Deficiency of other specified B group vitamins
CPT/HCPCS: 82306; 82607; 82728; 83036; 84439; 84443

== ENCOUNTER 2021-02-28 15:24 | Outpatient (REF) | payer MEDICAID, SELFPAY ==
[2021-02-28 15:28] LABS: HGB 11.8 g/dL (11.2-15.7); MCH 27.6 pg (27.0-33.0); MCHC 29.5 % (32.0-36.0); MCV 93.7 fL (80-95); MPV 11.3 fL (8.0-11.0); Platelet Count 268 10^3/uL (130-400); RBC 4.27 10^6/uL (3.93-5.22); RDW 14.5 % (11.7-14.6); WBC 9.72 10^3/uL (4.4-10.8)
[2021-02-28 16:20] LABS: TSH (W/Ref FT4) 1.54 uIU/mL (0.36-3.74)
[2021-02-28 16:55] LABS: Ferritin 31 ng/mL (8-252)
== END 2021-02-28 15:25 | disposition home or self-care (01) ==
LOC: NCHCN 15:24
PROVIDERS: PCP Nurse Practitioner; Visit Provider Family Medicine
DX: E03.9 Hypothyroidism, unspecified (principal); R53.83 Other fatigue; G25.81 Restless legs syndrome
CPT/HCPCS: 85027; 82728; 84443

== ENCOUNTER 2021-04-18 11:47 | Outpatient (CLI) | payer MEDICAID, SELFPAY ==
--- NOTE | 2021-04-18 11:39 | DI.RAD_ITS ---
Exam(s) XR KNEE LT 2V AP,LAT EXAM: XR KNEE LT 2V AP,LAT CLINICAL HISTORY: ANNUAL F/U L TKA. TECHNIQUE: 2D digital imaging was performed. COMPARISON: CR XR KNEE LT 1V from 05/03/2020 FINDINGS: Again noted is left knee prosthesis. No fracture or loosening evident No radiographic evidence of osteomyelitis. IMPRESSION: DATA REPOSITORY: RADIATION DOSE DELIVERED:
== END 2021-04-18 11:48 | disposition home or self-care (01) ==
LOC: DIORS 11:47
PROVIDERS: PCP Nurse Practitioner; Referring Provider Nurse Practitioner; Visit Provider Student in an Organized Health Care Education/Training Program
DX: Z96.652 Presence of left artificial knee joint (principal); Z47.1 Aftercare following joint replacement surgery
CPT/HCPCS: 73560

== ENCOUNTER 2021-05-23 08:22 | Outpatient (REF) | payer MEDICAID, SELFPAY ==
[2021-05-23 16:07] LABS: Hemoglobin A1C 8.6 % (<5.7)
[2021-05-23 16:36] LABS: ALT 34 U/L (14-59); Anion Gap 9.5 mmol/L (3-11); BUN 8 mg/dL (7-18); CO2 27.5 mmol/L (21.0-32.0); CREATININE 0.5 mg/dL (0.55-1.02); Calculated LDL 76 mg/dL (<100); Chloride 103 mmol/L (98-107); Cholesterol 144 mg/dL (<200); Folate 18.4 ng/mL (8.6-20.0); Glucose 173 mg/dL (74-106); HDL Cholesterol 41 mg/dL (40-60); Potassium 4.1 mmol/L (3.5-5.1); Sodium 140 mmol/L (136-145); Triglyceride 139 mg/dL (<150); Vitamin B12 422 pg/mL (193-986)
== END 2021-05-23 08:23 | disposition home or self-care (01) ==
LOC: NCHCN 08:22
PROVIDERS: PCP Nurse Practitioner; Visit Provider Family Medicine
DX: I10 Essential (primary) hypertension (principal); E11.9 Type 2 diabetes mellitus without complications; E78.5 Hyperlipidemia, unspecified; E55.9 Vitamin D deficiency, unspecified; G25.81 Restless legs syndrome
CPT/HCPCS: 80048; 80061; 82607; 82746; 83036; 84460

== ENCOUNTER 2021-07-19 15:44 | Outpatient (REF) | payer MEDICAID, SELFPAY ==
[2021-07-19 19:26] LABS: COMMENT (LAB VIEW ONLY) 33.86 mg/dL; Microalb ug/mg Crea 26.6 ug/mg Cr
== END 2021-07-19 15:45 | disposition home or self-care (01) ==
LOC: NCHCN 15:44
PROVIDERS: PCP Nurse Practitioner; Visit Provider Family Medicine
DX: E11.9 Type 2 diabetes mellitus without complications (principal)
CPT/HCPCS: 82043; 82570

== ENCOUNTER 2021-09-27 10:20 | Outpatient (CLI) | payer MEDICAID, SELFPAY ==
[2021-09-27 11:15] LABS: Ferritin 78 ng/mL (8-252)
== END 2021-09-27 10:21 | disposition home or self-care (01) ==
LOC: LBO 10:20
PROVIDERS: PCP Nurse Practitioner; Visit Provider Nurse Practitioner
DX: M25.511 Pain in right shoulder (principal)
CPT/HCPCS: 36415; 82728

== ENCOUNTER 2021-12-20 13:39 | Outpatient (REF) | payer MEDICAID, SELFPAY ==
[2021-12-20 15:41] LABS: ESR 35 mm/hr (0-30)
[2021-12-20 17:00] LABS: C-Reactive Protein 0.75 mg/dL (0.0-0.3)
[2021-12-23 09:42] LABS: Cyclic Citrullinated Peptide <2.5 U/mL (<5.0)
[2021-12-23 14:52] LABS: ANA Interpretation Negative (Negative)
== END 2021-12-20 13:40 | disposition home or self-care (01) ==
LOC: NCHCN 13:39
PROVIDERS: PCP Nurse Practitioner; Visit Provider Family Medicine
DX: M79.641 Pain in right hand (principal); M79.642 Pain in left hand; M17.12 Unilateral primary osteoarthritis, left knee; M25.511 Pain in right shoulder
CPT/HCPCS: 85652; 86200; 86038; 86140

== ENCOUNTER 2022-03-21 19:36 | Outpatient (REF) | payer MEDICAID, SELFPAY ==
[2022-03-21 20:16] LABS: BUN 11 mg/dL (7-18); CREATININE 0.5 mg/dL (0.55-1.02); Calcium 9.7 mg/dL (8.5-10.1); Chloride 103 mmol/L (98-107); Estimated GFR 104.02 (mL/min/1.73m2); Glucose 162 mg/dL (74-106); Potassium 4.1 mmol/L (3.5-5.1); Sodium 139 mmol/L (136-145)
[2022-03-21 20:20] LABS: TSH (W/Ref FT4) < 0.01 uIU/mL (0.36-3.74)
[2022-03-21 20:39] LABS: FREE T4 1.65 ng/dL (0.76-1.46)
[2022-03-21 20:46] LABS: Ferritin 76 ng/mL (8-252)
== END 2022-03-21 19:37 | disposition home or self-care (01) ==
LOC: NCHCN 19:36
PROVIDERS: PCP Nurse Practitioner; Visit Provider Family Medicine
DX: R53.83 Other fatigue (principal); E03.9 Hypothyroidism, unspecified; I10 Essential (primary) hypertension
CPT/HCPCS: 80048; 82728; 84439; 84443

== ENCOUNTER 2022-04-18 10:51 | Outpatient (CLI) | payer MEDICARE, MEDICAID, SELFPAY ==
--- NOTE | 2022-04-18 10:45 | DI.RAD_ITS ---
Exam(s) XR KNEE LT 2V AP,LAT EXAM: XR KNEE LT 2V AP,LAT INDICATION: annual f/u. COMPARISON: CR XR KNEE LT 2V AP,LAT from 04/18/2021 TECHNIQUE: 2D digital imaging was performed. Two views. FINDINGS: There has been no change in the alignment of the total knee prosthesis or appearance of the surroundi ng bone. DATA REPOSITORY: RADIATION DOSE DELIVERED:
--- NOTE | 2022-04-18 10:45 | DI.RAD_ITS ---
Exam(s) XR HIP RT COMPLETE AP PELVIS EXAM: XR HIP RT COMPLETE AP PELVIS INDICATION: R hip pain. COMPARISON: CR XR STANDING ALIGNMENT from 04/12/2020 TECHNIQUE: 2D digital imaging was performed. Three views. FINDINGS: Hip joint spaces are maintained. There is mild acetabular spurring. Enthesophytes are noted at the iliac wings. Mild degenerative changes are noted at the SI joints. IMPRESSION: Mild degenerative changes. DATA REPOSITORY: RADIATION DOSE DELIVERED:
== END 2022-04-18 10:52 | disposition home or self-care (01) ==
PROVIDERS: PCP Family Medicine; Referring Provider Family Medicine; Visit Provider Student in an Organized Health Care Education/Training Program
DX: Z96.652 Presence of left artificial knee joint; M17.11 Unilateral primary osteoarthritis, right knee; Z47.1 Aftercare following joint replacement surgery
CPT/HCPCS: 99213; 73502; 73560

== ENCOUNTER 2022-05-01 01:22 | Outpatient (CLI) | payer MEDICARE, MEDICAID, SELFPAY ==
--- NOTE | 2022-05-01 | DI.DEXA_ITS ---
Exam(s) XR DEXA BONE DENSITY W/WO GAYLA EXAM: XR DEXA BONE DENSITY W/WO GAYLA CLINICAL HISTORY: SCREENING FOR OSTEOPOROSIS IN POSTMENOPAUSAL WOMAN,Z78.0,VIT D DEFICIENT TECHNIQUE: [employer] Horizon C densitometer analysis of right hip, lumbar spine and left forearm. COMPARISON: CT CT CHEST W from 09/17/2020 CR XR HIP RT COMPLETE AP PELVIS from 04/18/2022 FINDINGS: Lateral view of the thoracic and lumbar spine shows no evidence of compression fractures. There is prominent thoracic kyphosis. Bone mineral density measurements of the lumbar spine correspond to a total T-score of -0.9, in mary l range. Bone mineral density measurements of the right hip correspond to a total T-score of -1.3 . The femor al neck T-score is -1.1, in the osteopenic range.. The left forearm bone mineral density measurements correspond to a T-score of the distal 3rd of -1.4 , in the osteopenic range.. IMPRESSION: Osteopenia of the forearm and hip. Normal bone mineral density of the spine.
== END 2022-05-01 01:42 ==
PROVIDERS: PCP Family Medicine; Visit Provider Family Medicine
DX: Z13.820 Encounter for screening for osteoporosis (principal); M85.89 Other specified disorders of bone density and structure, multiple sites; E55.9 Vitamin D deficiency, unspecified; Z78.0 Asymptomatic menopausal state
CPT/HCPCS: 77080

== ENCOUNTER 2022-05-28 11:23 | Outpatient (REF) | payer MEDICARE, MEDICAID, SELFPAY ==
[2022-05-28 16:16] LABS: TSH (W/Ref FT4) 0.01 uIU/mL (0.36-3.74)
[2022-05-28 16:36] LABS: FREE T4 1.39 ng/dL (0.76-1.46)
== END 2022-05-28 11:24 | disposition home or self-care (01) ==
LOC: NCHCN 11:23
PROVIDERS: PCP Family Medicine; Visit Provider Family Medicine
DX: E03.9 Hypothyroidism, unspecified (principal)
CPT/HCPCS: 84439; 84443

== ENCOUNTER 2022-06-27 18:49 | Outpatient (REF) | payer MEDICARE, MEDICAID, SELFPAY ==
--- NOTE | 2022-06-27 13:15 | PAPFT_PTH ---
PATIENT: Shaina Puentes LOC: [facility]#:[id number] AGE/SX: 67/F ROOM: RE06/27/[address]: Jessi Aguilera : 1955 BED: DIS: 06/27/2022 SPEC #: [id number] RECD: 06/30/22 12:53 STATUS: TEDDY REDann #: [id number] SHEELA: 06/27/22 13:[address]: Jessi Aguilera DEPT: [facility] Cytology RECD BY: Erma Meehan Tissues: 1 - CX/ENDOCX FOR PAP SMEARS Procedures: PAP THIN PREP/UVM Screening HPV DNA PROBE Comments: [id number]
[2022-06-27 19:09] LABS: TSH (W/Ref FT4) 0.03 uIU/mL (0.36-3.74)
[2022-06-27 19:26] LABS: FREE T4 1.31 ng/dL (0.76-1.46)
== END 2022-06-27 18:50 | disposition home or self-care (01) ==
LOC: NCHCN 18:49
PROVIDERS: PCP Family Medicine; Visit Provider Family Medicine
DX: E03.9 Hypothyroidism, unspecified (principal); Z11.51 Encounter for screening for human papillomavirus (HPV); Z01.419 Encounter for gynecological examination (general) (routine) without abnormal findings
CPT/HCPCS: 88142; 84439; 84443; 87624

== ENCOUNTER 2022-07-02 00:50 | Outpatient (CLI) | payer MEDICARE, MEDICAID, SELFPAY ==
--- NOTE | 2022-07-02 08:30 | DI.MAMMO_ITS ---
Exam(s) MAMMO SCREENING EXAM: MAMMO SCREENING CLINICAL HISTORY: SCREENING, Z12.31 TECHNIQUE: Mammograms were interpreted according to the usual protocol including computer analysis w [employer] CAD system, tomosynthesis and C-view imaging. COMPARISON: 2012 through 2020 FINDINGS: The breasts are composed of mainly fatty density , Breast Density category A. No suspicious masses or suspicious microcalcifications are seen. No skin thickening or abnormal axillary lymph nodes are seen. There has been no significant change from prior exams. IMPRESSION: BI-RADS Category 1, Negative mammogram Yearly screening mammography is recommended. Breast Density - Category A, fatty density. A negative radiographic report should not delay biopsy if a dominant or clinically suspicious mass is present. Up to ten percent of cancers are not identified on mammography. A negative report may reinforce clinical impression. Adenosis and dense breasts may obscure an underlying neoplasm. False positive reports average 6 to 10%. Patient will receive a letter notifying them of these results.
== END 2022-07-02 01:10 ==
LOC: DI 00:50
PROVIDERS: PCP Family Medicine; Visit Provider Family Medicine
DX: Z12.31 Encounter for screening mammogram for malignant neoplasm of breast (principal)
CPT/HCPCS: 77063; 77067

== ENCOUNTER 2022-09-26 15:20 | Outpatient (REF) | payer MEDICARE, MEDICAID, SELFPAY ==
[2022-09-26 19:10] LABS: TSH (W/Ref FT4) 0.36 uIU/mL (0.36-3.74)
[2022-09-26 19:16] LABS: COMMENT (LAB VIEW ONLY) 177.65 mg/dL; Microalb ug/mg Crea 8.9 ug/mg Cr
== END 2022-09-26 15:21 | disposition home or self-care (01) ==
LOC: NCHCN 15:20
PROVIDERS: PCP Family Medicine; Visit Provider Family Medicine
DX: E03.9 Hypothyroidism, unspecified (principal); E11.9 Type 2 diabetes mellitus without complications
CPT/HCPCS: 82043; 82570; 84443

== ENCOUNTER 2022-11-19 11:33 | Outpatient (REF) | payer MEDICARE, MEDICAID, SELFPAY ==
[2022-11-19 16:27] LABS: HCT 39.6 % (36.0-46.0); HGB 12.7 g/dL (11.2-15.7); MCH 29.3 pg (27.0-33.0); MCHC 32.1 % (32.0-36.0); MCV 92 fL (80-95); MPV 11.3 fL (8.0-11.0); Platelet Count 261 10^3/uL (130-400); RBC 4.33 10^6/uL (3.93-5.22); RDW 13.6 % (11.7-14.6); RDW-SD 46.5 fL; WBC 9.42 10^3/uL (4.4-10.8)
[2022-11-19 16:50] LABS: ALT 38 U/L (14-59); AST 31 U/L (15-37); Albumin 4.2 g/dL (3.4-5.0); Alkaline Phosphatase 131 U/L (46-116); Anion Gap 9.6 mmol/L (3-11); BUN 11 mg/dL (7-18); Bilirubin, Total 0.6 mg/dL (0.2-1.0); CO2 27.4 mmol/L (21.0-32.0); CREATININE 0.6 mg/dL (0.55-1.02); Calcium 9.6 mg/dL (8.5-10.1); Chloride 103 mmol/L (98-107); Estimated GFR 99.55 (mL/min/1.73m2); Glucose 134 mg/dL (74-106); Potassium 4.1 mmol/L (3.5-5.1); Sodium 140 mmol/L (136-145); Total Protein 7.4 g/dL (6.4-8.2)
[2022-11-19 18:06] LABS: Hemoglobin A1C 8.5 % (<5.7)
== END 2022-11-19 11:34 | disposition home or self-care (01) ==
LOC: NCHCN 11:33
PROVIDERS: PCP Family Medicine; Visit Provider Family Medicine
DX: E11.9 Type 2 diabetes mellitus without complications (principal); R53.83 Other fatigue
CPT/HCPCS: 80053; 85027; 83036

== ENCOUNTER 2022-11-28 14:33 | Outpatient (CLI) | payer MEDICARE, MEDICAID, SELFPAY | END 2022-11-28 14:34 | disposition home or self-care (01) | LOC: CARDOPNVT 14:33 | PROVIDERS: PCP Family Medicine; Visit Provider Family Medicine | DX: R55 Syncope and collapse (principal) | CPT/HCPCS: 93270 ==

== ENCOUNTER 2023-01-02 07:52 | Outpatient (CLI) | payer MEDICARE, MEDICAID, SELFPAY ==
--- NOTE | 2023-01-02 10:23 | W.CARDEVENT ---
Date of service: 01/02/23 Time of Service: 10:23 Cardiac Event Recorder Referring Provider:: Jessi Aguilera Indications:: Syncope Cardiac Event Note: This is a cardiac event monitor ordered for syncope. Patient was monitored for 25 days and 11 hours Rhythm throughout was sinus. Average heart rate was 94. There was no bradycardia. Maximum heart rate was 108 There were rare isolated PVCs There was no atrial fibrillation, no high-grade AV block, no pauses greater than 3 seconds Patient's symptoms of chest pain and passed out correlated to sinus rhythm, rate 100, several PVCs
== END 2023-01-02 07:53 | disposition home or self-care (01) ==
LOC: CARDOPNVT 07:52
PROVIDERS: PCP Family Medicine; Visit Provider Internal Medicine Cardiovascular Disease
DX: R55 Syncope and collapse (principal)
CPT/HCPCS: 93272

== ENCOUNTER → 2023-01-22 13:17 | Outpatient (BNVA) | payer MEDICARE, SELFPAY | PROVIDERS: PCP Family Medicine; Referring Provider Family Medicine; Visit Provider Physical Therapy Assistant | DX: Z12.11 Encounter for screening for malignant neoplasm of colon (principal); Z86.010 Personal history of colon polyps ==

== ENCOUNTER 2023-01-28 10:44 | Emergency (ER) | payer MEDICARE, SELFPAY ==
[2023-01-28 10:53] VITALS: BP 169/73; PULSE 91; RESP 20; TEMP 36.8; O2SAT 99
--- NOTE | 2023-01-28 12:05 | DI.RAD_ITS ---
Exam(s) XR FINGER LT LITTLE EXAM: XR FINGER LT LITTLE CLINICAL HISTORY: injury, swelling. TECHNIQUE: 2D digital imaging was performed. COMPARISON: No exams were available for comparison FINDINGS: 3 views Some soft tissue swelling and skin abrasion. No radiopaque foreign body. No fractures evident. Sma ll osteophytic densities seen off the lateral aspect of the proximal interphalangeal joint. This is the side opposite the laceration, with the laceration appearing to be on the medial aspect of the fin casper at the mid proximal phalanx level. No evidence of osteomyelitis. Incidentally noted is a developmentally short middle phalanx of the 5th finger. IMPRESSION: Medial side skin-subcutaneous injury with no radiopaque foreign body nor gas in the soft tissues at t his level. Small calcific density seen on the opposite-lateral side of the proximal interphalangeal joint, this measuring 1.5 x 1.5 mm and doubtful E related to the acute trauma. DATA REPOSITORY: RADIATION DOSE DELIVERED:
[2023-01-28] MEDS: ceFAZolin 2,000 MG in Normal Saline 100 ML 200 MG IVPB (12:31)
[2023-01-28] MEDS: Water,Injection,Sterile 10 ML VIAL (12:32)
[2023-01-28 12:35] LABS: ESR 19 mm/hr (0-30)
[2023-01-28 12:39] LABS: Abs Immature Grans 0.04 10^3/uL (0.0-0.06); Absolute Basophil Count 0.06 10^3/uL (0.0-0.2); Absolute Eosinophil Count 0.18 10^3/uL (0.0-0.7); Absolute Monocyte Count 0.47 10^3/uL (0.1-0.8); Absolute Neutrophil Count 6.49 10^3/uL (1.2-6.7); Basophils % 0.7; HCT 40.4 % (36.0-46.0); Immature Grans % 0.4; MCH 29.5 pg (27.0-33.0); MCHC 32.2 % (32.0-36.0); MCV 92 fL (80-95); MPV 10.5 fL (8.0-11.0); Monocytes % 5.3; Neutrophils % 72.6; Platelet Count 315 10^3/uL (130-400); RDW 13.4 % (11.7-14.6); RDW-SD 45.3 fL; WBC 8.94 10^3/uL (4.4-10.8)
--- NOTE | 2023-01-28 12:52 | OCONE_ITS ---
Date of service: 01/28/23 Time of Service: 12:52 History of Present Illness History of Present Illness Chief Complaint: Left little finger laceration Narrative: Patient presented to ER for left little finger laceration she sustained 3 days ago. Consultation was requested by ISABELLE Calhoun for concern of infected laceration with possible open fracture, concern for proper follow-up. Assessment and Plan Assessment and plan (1) Laceration of left little finger: Status: Acute Assessment and plan: 67-year-old female with left little finger laceration, question of open fracture Patient reports that 3 days ago on 01/25/2023 she was running her hand along a metal railing, stumbled, sustaining a laceration to her left fifth finger. She did not think it was very serious and did not seek medical attention. Now continues with swelling, pain, certain of infection. In the ER workup included IV access, IV Ancef, x-ray, CBC, CMP, ESR, CRP. Tetanus status was updated. Patient is [id number]-shuzllwx. History of diabetes, last A1c on 11/19/2022 8.5. Non-smoker. Left hand exam: Little finger with an irregular flap-like laceration approximately 5.0 cm in length. Extends along the flexor and lateral aspect of the finger distal to the IP joint just distal to the DIP joint. There is diffuse tenderness, moderate swelling, localized erythema and warmth. No purulent drainage. The rest of the hand is unaffected. Patient is able to partially extend and flex at the IP, PIP, and DIP joints. Normal capillary refill and radial pulse. Sensation is intact. X-ray reviewed, reveals medial soft tissue deficit, there is a small calcium density along the lateral proximal IP joint. Difficult to tell whether this is acute. White blood cell count 8.94, ESR of 19, glucose 199, CRP is elevated at 5.33 2 photos post closure with loose approximation below. I then placed a Xeroform dressing, surrounded by a nonstick pad, then wrapped with a bulky gauze wrap. Discussed in length with the patient. Difficult to determine whether there truly is a acute fracture. Patient will be given a prescription of Keflex 500 mg 3 times daily x 7 days. She was given enough dressing supplies including Xeroform to change dressing daily. She is confident that she can appropriately change the dressing. We discussed the importance of the dressing being nonstick and when she change the dressing be very careful to not aggressively pull the tissue as it is very delicate. Discussed that if it is stuck she may use a mixture of gane-mxc-uvxf saline and hydroperoxide to soak her finger with gentle agitation to help get the dressing off. We also discussed in length that this is unfortunately 3 days old, she is diabetic, and this tissue may not be viable. She will come to the office either Thursday or Thursday of next week for follow-up. She was encouraged to contact the office sooner for new or evolving symptoms or go directly back to the ER. She does understand that ultimately if this does not heal appropriately it may end in a referral to hand surgery at [facility]. [facility] All Active Problems (Updated 01/28/23 @ 15:17 by ISABELLE Stuart) Laceration of left little finger (Acute ~01/25/23) Finger laceration (Acute) Cellulitis (Acute) Open fracture of phalanx of finger (Acute) Pneumonia (Acute) Pleural mass (Acute) Pleural thickening (Acute) Vitamin B12 deficiency (Acute) Arthritis of hand (Acute) Fatigue (Acute) Dyspnea on exertion (Acute) Arthrofibrosis of total knee arthroplasty (Acute) History of total left knee replacement (Acute 04/18/20) GERD (gastroesophageal reflux disease) (Chronic) Trigger finger, right middle finger (Acute) Abdominal pain (Acute) Left ankle sprain (Acute) Osteoarthritis of right knee (Chronic) Injection: 12/15/2019 Diarrhea (Acute) Anxiety (Chronic) Medical History (Updated 01/28/23 @ 15:17 by ISABELLE Stuart) Pain, joint, shoulder, right Depression Nausea Hand joint pain Tubular adenoma of colon Asthma Vitamin D deficiency Hypertension Hx of cardiac murmur diagnosed when Diabetes type 2, controlled Pleural scarring chronic right chest pt. is unsure of this Restless leg syndrome Neuropathy associated with Tgwkzyw-Yupyb-Rstfg syndrome Hypothyroid Hyperlipidemia Onychomycosis Tinea pedis Hx of bronchitis Tvssunt-Cprgm-Lnjmx disease pt. states MD does not think she has Surgical History Hx of esophagogastroduodenoscopy bone graft left hip Ligation of fallopian tube Open Carpal Tunnel release bilateral Colonoscopy - MAC (08/17/17) Social History Smoking/Tobacco Use Status: Former Tobacco Use Quit Date: 02/23/94 Pack-years: 10 Tobacco: How many years used: 21 Smoking risk assessment performed?: Yes Alcohol Intake: current Alcohol Intake frequency: holidays/special occasions only Alcohol type: hard liquor Drug use: Never Substance use type: does not use Details: alcohol: unknown Current gender identity: female Do you feel safe at home: Yes Do you feel safe in your relationship?: Yes Results Last Vital Signs Temp 36.8 C 01/28/23 10:53 Pulse 91 H 01/28/23 10:53 Resp 20 01/28/23 10:53 BP 169/73 H 01/28/23 10:53 Pulse Ox 99 01/28/23 10:53 Labs 01/28/23 12:27 01/28/23 12:27 Labs: Laboratory Results - last 24 hr 01/28/23 12:27 WBC 8.94 RBC 4.40 Hgb 13.0 Hct 40.4 MCV 92 MCH 29.5 MCHC 32.2 RDW 13.4 Plt Count 315 MPV 10.5 Immature Gran % 0.4 Neutrophils % 72.6 Lymphocytes % 19.0 Monocytes % 5.3 Eosinophils % 2.0 Basophils % 0.7 Nucleated RBC % 0.0 Absolute Neutrophils 6.49 Absolute Lymphocytes 1.70 Absolute Monocytes 0.47 Absolute Eosinophils 0.18 Absolute Basophils 0.06 ESR 19 Procedures Laceration LEFT LITTLE FINGER: Site: hand (little finger) Side (if applicable): left Size (cm): 5.0 Description: flap and irregular Depth: simple, single layer Anesthetic used: bupivacaine Anesthesia technique: nerve block Amount (ml): 4 Pre-repair: wound explored, irrigated extensively, deep structures intact and wound margins revised Skin layer closed with: other (Ethilon) Size (cm): 4-0 Number of sutures: 3 Technique: simple, interrupted (Loose approximation)
[2023-01-28 13:02] LABS: BUN 11 mg/dL (7-18); C-Reactive Protein 5.33 mg/dL (0.0-0.3); CREATININE 0.6 mg/dL (0.55-1.02); Calcium 9.3 mg/dL (8.5-10.1); Chloride 101 mmol/L (98-107); Estimated GFR 99.55 (mL/min/1.73m2); Glucose 199 mg/dL (74-106); Potassium 3.8 mmol/L (3.5-5.1); Sodium 139 mmol/L (136-145)
--- NOTE | 2023-01-28 14:03 | W.ED.GENAD ---
Discharge Plan Disposition Patient Disposition: Home Discharge Details Clinical Impression: Open fracture of phalanx of finger, Cellulitis, Finger laceration Primary Care Provider: Jessi Aguilera ED Provider: Erma Calhoun Home Meds and New Rx's Prescriptions: New cephalexin 500 mg capsule 500 mg PO Q6H 7 Days Qty: 28 0RF Continued losartan 25 mg tablet 50 mg PO DAILY (DME) blood-glucose meter Misc See Rx Instructions .ROUTE .MEDSUPPLY Qty: 1 Rx Instructions: As directed (DME) Blood Glucose Test Strip See Rx Instructions .ROUTE .MEDSUPPLY Qty: 10 Rx Instructions: As directed (DME) lancets [Fingerstix Lancets] Misc See Rx Instructions .ROUTE .MEDSUPPLY Qty: 100 Rx Instructions: As directed Ozempic 0.25 mg or 0.5 mg(2 mg/1.5 mL) pen injector 0.5 mg subcut QWEEK cholecalciferol (vitamin D3) 1,000 UNIT tablet,chewable 1,000 unit PO DAILY atorvastatin [Lipitor] 20 mg tablet 20 mg PO QHS duloxetine 60 mg capsule,delayed release(DR/EC) 60 mg PO DAILY omeprazole 20 mg capsule,delayed release(DR/EC) 20 mg PO DAILY cyanocobalamin (vitamin B-12) 1,000 mcg/mL solution 1,000 mcg subcut QMONTH ferrous sulfate 325 mg (65 mg iron) tablet 325 mg PO BID levothyroxine 112 mcg capsule 100 mcg PO DAILY metformin [Glucophage] 1,000 mg tablet 1,000 mg PO BID acetaminophen 500 mg tablet 1,000 mg PO Q8H PRN (Reason: pain) Qty: 90 3RF Discharge Instructions Instructions: Finger Fracture (ED), Cellulitis (ED), Finger Laceration (ED) Additional Instructions: Keep wound clean and dry 02/04 @ 1115 orthopedic appt Change dressing daily Tylenol as needed for pain Return redness running redness, fever, worsening pain Referrals: Minh Aden MD [ [facility] STAFF PHYSICIAN] - Jessi Aguilera MD [Primary Care Provider] - Medical Decision Making 67-year-old female presenting with laceration which was acquired 4 days prior to arrival, x-ray was ordered for further evaluation, small avulsion fracture noted, concern for open fracture per radiology interpretation my review Labs are ordered, CRP is elevated, sed rate and white blood cell count within normal limits Of note, patient is a diabetic, last A1c 8.5, glucose 199 Flexion and extension appear intact, patient is neurologically intact She has evidence of a secondary cellulitis, orthopedics was involved and Luis Contreras perform procedure on patient, please see his documentation Simply orthopedics will see patient closely in the outpatient setting She will be placed on Keflex and bulky dressing applied Return precautions were reviewed and patient expressed understanding On exam, patient is fully alert and oriented x 4 Her left fifth digit shows approximately 5 cm V-shaped flap of skin which is deep, she has swelling and erythema around the site without any evidence of lymphangitis and does not appear systemically ill She has sensation intact and is able to flex finger, no evidence of tenosynovitis clinically, no crepitus, low threshold to return with new or worsening complaints HPI General Date/Time Provider Initiated Documentation: 01/28/23 11:08. HPI Narrative: This 67-year-old female with history of hypothyroidism, diabetes, hypertension presents with a laceration to left fifth digit on Thursday. She was running her hand on a railing when it cut her finger. She did not receive intervention at that time. She is unsure regarding her tetanus. She feels as though she has sensation able to flex and extend her finger. Related Data Home Medications Medication Instructions Recorded Confirmed cholecalciferol (vitamin D3) 25 1,000 unit PO DAILY 06/26/15 01/28/23 mcg (1,000 unit) chewable tablet metformin 1,000 mg tablet 1,000 mg PO BID 10/01/18 01/28/23 (Glucophage) acetaminophen 500 mg tablet 1,000 mg (2 x 500 mg) PO Q8H PRN 04/18/20 01/28/23 pain #90 tabs blood sugar diagnostic (Blood #10 ea 09/07/20 04/18/22 Glucose Test strips) blood-glucose meter #1 ea 09/07/20 04/18/22 lancets (Fingerstix Lancets) #100 ea 09/07/20 04/18/22 losartan 25 mg tablet 50 mg PO DAILY 04/18/21 01/28/23 atorvastatin 20 mg tablet (Lipitor) 20 mg PO QHS 09/04/22 01/28/23 cyanocobalamin (vitamin B-12) 1,000 mcg subcut QMONTH 09/04/22 01/28/23 1,000 mcg/mL injection solution duloxetine 60 mg capsule,delayed 60 mg PO DAILY 09/04/22 01/28/23 release ferrous sulfate 325 mg (65 mg 325 mg PO BID 09/04/22 01/28/23 iron) tablet omeprazole 20 mg capsule,delayed 20 mg PO DAILY 09/04/22 01/28/23 release levothyroxine 112 mcg capsule 100 mcg PO DAILY 01/22/23 01/28/23 semaglutide 0.25 mg or 0.5 mg (2 0.5 mg subcut QWEEK 01/22/23 01/28/23 mg/1.5 mL) subcutaneous pen injector (Ozempic) cephalexin 500 mg capsule 500 mg PO Q6H 7 days #28 caps 01/28/23 Previous Rx's Medication Instructions Recorded acetaminophen 500 mg tablet 1,000 mg (2 x 500 mg) PO Q8H PRN 04/18/20 pain #90 tabs cephalexin 500 mg capsule 500 mg PO Q6H 7 days #28 caps 01/28/23 Allergies Allergy/AdvReac Type Severity Reaction Status Date / Time erythromycin base AdvReac Intermediate cramps, Verified 01/28/23 10:53 diarrhea lisinopril AdvReac cough Verified 01/28/23 10:53 General Stated Complaint: Laceration NADER: 4 PFSH All Active Problems (Updated 01/28/23 @ 15:17 by ISABELLE Stuart) Laceration of left little finger (Acute ~01/25/23) Finger laceration (Acute) Cellulitis (Acute) Open fracture of phalanx of finger (Acute) Pneumonia (Acute) Pleural mass (Acute) Pleural thickening (Acute) Vitamin B12 deficiency (Acute) Arthritis of hand (Acute) Fatigue (Acute) Dyspnea on exertion (Acute) Arthrofibrosis of total knee arthroplasty (Acute) History of total left knee replacement (Acute 04/18/20) GERD (gastroesophageal reflux disease) (Chronic) Trigger finger, right middle finger (Acute) Abdominal pain (Acute) Left ankle sprain (Acute) Osteoarthritis of right knee (Chronic) Injection: 12/15/2019 Diarrhea (Acute) Anxiety (Chronic) Medical History (Updated 01/28/23 @ 15:17 by ISABELLE Stuart) Pain, joint, shoulder, right Depression Nausea Hand joint pain Tubular adenoma of colon Asthma Vitamin D deficiency Hypertension Hx of cardiac murmur diagnosed when Diabetes type 2, controlled Pleural scarring chronic right chest pt. is unsure of this Restless leg syndrome Neuropathy associated with Kilgbdn-Grwmp-Iywlk syndrome Hypothyroid Hyperlipidemia Onychomycosis Tinea pedis Hx of bronchitis Icxjhvk-Iiknn-Trors disease pt. states MD does not think she has Surgical History Hx of esophagogastroduodenoscopy bone graft left hip Ligation of fallopian tube Open Carpal Tunnel release bilateral Colonoscopy - MAC (08/17/17) Social History Smoking/Tobacco Use Status: Former Tobacco Use Quit Date: 02/23/94 Pack-years: 10 Tobacco: How many years used: 21 Smoking risk assessment performed?: Yes Alcohol Intake: current Alcohol Intake frequency: holidays/special occasions only Alcohol type: hard liquor Drug use: Never Substance use type: does not use Details: alcohol: unknown Current gender identity: female Do you feel safe at home: Yes Do you feel safe in your relationship?: Yes Course Vital Signs Vital signs: Vital Signs Temperature 36.8 C 01/28/23 10:53 Pulse 91 H 01/28/23 10:53 Respiratory Rate 20 01/28/23 10:53 Blood Pressure 169/73 H 01/28/23 10:53 Pulse Oximetry 99 01/28/23 10:53 Temperature 36.8 C 01/28/23 10:53 Temperature Source Oral 01/28/23 10:53 Pulse 91 H 01/28/23 10:53 Respiratory Rate 20 01/28/23 10:53 Respiratory Effort Normal 01/28/23 11:19 Blood Pressure 169/73 H 01/28/23 10:53 Blood Pressure Position Sitting 01/28/23 10:53 Pulse Oximetry 99 01/28/23 10:53 Oxygen Delivery Method Room Air 01/28/23 10:53 Oxygen Flow Rate 0 01/28/23 10:53 Lab/Test Results Lab/Test Results: Laboratory Tests Range/Units 01/28/23 12:27 WBC (4.4-10.8) 10^3/uL 8.94 RBC (3.93-5.22) 10^6/uL 4.40 Hgb (11.2-15.7) g/dL 13.0 Hct (36.0-46.0) % 40.4 MCV (80-95) fL 92 MCH (27.0-33.0) pg 29.5 MCHC (32.0-36.0) % 32.2 RDW (11.7-14.6) % 13.4 Plt Count (130-400) 10^3/uL 315 MPV (8.0-11.0) fL 10.5 Immature Gran % 0.4 Neutrophils % 72.6 Lymphocytes % 19.0 Monocytes % 5.3 Eosinophils % 2.0 Basophils % 0.7 Nucleated RBC % (0.0-0.3) % 0.0 Absolute Neutrophils (1.2-6.7) 10^3/uL 6.49 Absolute Lymphocytes (1.2-3.4) 10^3/uL 1.70 Absolute Monocytes (0.1-0.8) 10^3/uL 0.47 Absolute Eosinophils (0.0-0.7) 10^3/uL 0.18 Absolute Basophils (0.0-0.2) 10^3/uL 0.06 ESR (0-30) mm/hr 19 Sodium (136-145) mmol/L 139 Potassium (3.5-5.1) mmol/L 3.8 Chloride (98-107) mmol/L 101 Carbon Dioxide (21.0-32.0) mmol/L 30.0 Anion Gap (3-11) mmol/L 8.0 BUN (7-18) mg/dL 11 Creatinine (0.55-1.02) mg/dL 0.6 Est GFR (CKD-EPI 2020) (mL/min/1.73m2) 99.55 Glucose (74-106) mg/dL 199 H Calcium (8.5-10.1) mg/dL 9.3 C-Reactive Protein (0.0-0.3) mg/dL 5.33 H
[2023-01-28 15:20] VITALS: BP 142/66; PULSE 81; RESP 18; TEMP 37.1; O2SAT 97
== END 2023-01-28 15:21 | disposition home or self-care (01) ==
PROVIDERS: Emergency Provider Physician Assistant; PCP Family Medicine
DX: S62.637B Displaced fracture of distal phalanx of left little finger, initial encounter for open fracture (principal); L03.012 Cellulitis of left finger; I10 Essential (primary) hypertension; E11.9 Type 2 diabetes mellitus without complications; Z79.84 Long term (current) use of oral hypoglycemic drugs; Z23 Encounter for immunization
CPT/HCPCS: 12002; 36415; 80048; 85652; 90471; 99283; 73140; 85025; 86140; J0690

== ENCOUNTER → 2023-02-04 11:03 | Outpatient (BNVA) | payer MEDICARE, SELFPAY | PROVIDERS: PCP Family Medicine; Referring Provider Family Medicine; Visit Provider Student in an Organized Health Care Education/Training Program | DX: S61.217A Laceration without foreign body of left little finger without damage to nail, initial encounter (principal); W26.8XXA Contact with other sharp object(s), not elsewhere classified, initial encounter | CPT/HCPCS: 99213 ==

== ENCOUNTER → 2023-02-25 08:09 | Outpatient (BNVA) | payer OTHER, SELFPAY | PROVIDERS: PCP Family Medicine; Referring Provider Family Medicine; Visit Provider Student in an Organized Health Care Education/Training Program | DX: S61.217D Laceration without foreign body of left little finger without damage to nail, subsequent encounter (principal); X58.XXXD Exposure to other specified factors, subsequent encounter; R20.0 Anesthesia of skin | CPT/HCPCS: 99213 ==

== ENCOUNTER → 2023-07-02 09:49 | Outpatient (BNVA) | payer OTHER, SELFPAY | PROVIDERS: PCP Family Medicine; Referring Provider Family Medicine; Visit Provider Physical Therapy Assistant | DX: Z12.11 Encounter for screening for malignant neoplasm of colon (principal); Z86.010 Personal history of colon polyps ==

== ENCOUNTER 2023-07-24 07:32 | Day surgery (SDC) | payer OTHER, SELFPAY ==
--- NOTE | 2023-07-23 17:25 | PDOC.DSDIS_ITS ---
Date of service: 07/24/23 Time of Service: 09:26 Discharge Plan Disposition Patient Disposition: Home Condition: Good Discharge Details Reason For Visit: screening colonoscopy Attending Provider: Mejia Jacbos Primary Care Provider: Jessi Aguilera Home Meds and New Rx's Prescriptions: Continued losartan 25 mg tablet 50 mg PO DAILY (DME) blood-glucose meter Misc See Rx Instructions .ROUTE .MEDSUPPLY Qty: 1 Rx Instructions: As directed (DME) Blood Glucose Test Strip See Rx Instructions .ROUTE .MEDSUPPLY Qty: 10 Rx Instructions: As directed (DME) lancets [Fingerstix Lancets] Misc See Rx Instructions .ROUTE .MEDSUPPLY Qty: 100 Rx Instructions: As directed Ozempic 0.25 mg or 0.5 mg(2 mg/1.5 mL) pen injector 0.25 mg subcut QWEEK cholecalciferol (vitamin D3) 1,000 UNIT tablet,chewable 1,000 unit PO DAILY atorvastatin [Lipitor] 20 mg tablet 20 mg PO QHS duloxetine 60 mg capsule,delayed release(DR/EC) 60 mg PO DAILY omeprazole 20 mg capsule,delayed release(DR/EC) 20 mg PO DAILY cyanocobalamin (vitamin B-12) 1,000 mcg/mL solution 1,000 mcg subcut QMONTH levothyroxine 112 mcg capsule 100 mcg PO DAILY ferrous sulfate 325 mg (65 mg iron) tablet 325 mg PO DAILY metformin [Glucophage] 1,000 mg tablet 1,000 mg PO BID acetaminophen 500 mg tablet 1,000 mg PO Q8H PRN (Reason: pain) Qty: 90 3RF Discontinued bisacodyl [Dulcolax (bisacodyl)] 5 mg tablet,delayed release (DR/EC) 5 mg PO ONCE Qty: 4 0RF Rx Instructions: Take per colonoscopy instructions provided by ordering providers office polyethylene glycol 3350 17 gram/dose powder 17 g PO ONCE Qty: 238 0RF Rx Instructions: Take per colonoscopy instructions provided by ordering providers office Discharge Instructions Instructions: Diverticulosis (GEN), Diverticulosis Diet (GEN) Additional Instructions: Kenyetta, we are able to complete your colonoscopy today without much difficulty. Your prep was excellent. I did not find any tumors or polyps today. You do orosco ve a fair amount of diverticulosis. Diverticula are small weak spots in the muscular part of the colon wall. They can get infected and inflamed, and when that happens, we caught diverticulitis. Often times, patients who have active diverticulitis are treated with antibiotics. Hopefully, your diverticula do not give you much trouble. Have attached a little bit of information here regarding typical approaches to diverticular management. Because of the polyps that you had removed in the past, I do recommend another 5-year interval for your next screening colonoscopy. If that 1 is negative, then you could give stronger consideration to spacing them out a little more. 1. If tolerated, consume a soft, low fiber diet for 1-2 days. [address] Do not drive, drink alcohol, operate machinery, make critical decisions, or do activities that require coordination or balance for 24 hours. 3. Because air was put into your colon during the procedure, expelling air from your rectum (passing gas or farting) is normal. 4. You may not have a bowel movement for 1-3 days because of the colonoscopy prep. This is normal. 5. Go directly to the emergency room if you notice any of the following: Develop chills (warm to touch), or if you have a thermometer and your temperature is above 101 Difficulty breathing or difficultly swallowing Persistent vomiting Severe abdominal pain, other than gas cramps Severe chest pain Black, tarry stools Any bleeding ? exceeding one tablespoon 6. Call your physician if the site where your intravenous was started becomes red, swollen, painful, and warm to touch. 7. Your physician has reviewed your pre-procedure medications. Please continue to take those medications as previously ordered. You will be given specific information/education regarding any changes to your medications before leaving. Activity:: Activity as Tolerated Diet:: As Tolerated Discharge Orders Discharge Orders: Discharge Order (Routine); Ordered 07/23/23 Ordered By: Mejia Jacobs DS: Diagnosis Discharge Diagnosis (1) Encounter for screening colonoscopy: Status: Acute Asessment and Plan: Negative screening colonoscopy today; based on history of polyps, recommend a 5- year follow-up
--- NOTE | 2023-07-23 17:27 | COLE_ITS ---
Date of service: 07/24/23 Time of Service: : Colonoscopy Report Date of procedure: 07/24/23 Pre-op diagnosis general: screening colonoscopy Post-op diagnosis procedure note: other (Diverticulosis) Procedure: colonoscopy Surgeon: Mejia Jacobs Anesthesia Type: General:No Airway Estimated blood loss (mL): 0 Pathology: none sent Complications: None Disposition: same day Indications: Shaina is a 68 year old woman with a history of adenomatous polyps who needs her next screening colonoscopy Prep: Miralax/Dulcolax Procedure Start Time: 09:00 Procedure End Time: :20 Retraction Time: 7 Findings: Sigmoid diverticulosis Procedure Description: After the induction of monitored anesthetic care, and with the patient in left lateral decubitus position, I began by performing an external anorectal exam.? Perineum and skin were normal, as was the anal verge.? There was no evidence of external hemorrhoids.? Next, I performed a digital rectal exam.? I did not appreciate any abnormal findings.? Next, I advanced a colonoscope into the rectal vault.? There are some internal hemorrhoids.?Using insufflation, I then advanced the colonoscope beyond the rectal folds and into the sigmoid colon before advancing towards the cecum.? There is sigmoid diverticulosis.? The scope was noted to be in the cecum by identification of the ileocecal valve and appendiceal orifice.? I then began withdrawing the colonoscope using repeated irrigation as necessary for full evaluation of the colonic mucosa. ?Once the scope was withdrawn to the level of the rectum, great care was taken to examine portions of the rectal folds.? Finally, the scope was withdrawn and the patient was brought to the same-day surgery recovery unit as the anesthetic wore off. ?Aside from the diverticulosis mentioned above, I did not see any other worrisome pathology. The findings and instructions were shared with the patient prior to discharge. [place] Bowel Prep [place] Bowel Prep Right Colon: 2 Left Colon: 2 Transverse Colon: 3 Total Score: 7
[2023-07-24 07:35] VITALS: BP 145/74; PULSE 102; RESP 18; TEMP 36.3; O2SAT 98
[2023-07-24 08:01] VITALS: BMI 30.3
--- NOTE | 2023-07-24 08:01 | W.ANESPRE ---
General Info Date of Service Date Performed: 07/24/23 Height: 5 ft Weight: 70.4 kg Body Mass Index (BMI): 30.3 Surgical Procedure: Operation Date: 07/24/23 09:05 Proposed Procedure Side Surgeon muriel Jacobs MD Meds Allergies and Home Medications Allergies Allergy/AdvReac Type Severity Reaction Status Date / Time erythromycin base AdvReac Intermediate cramps, Verified 07/24/23 07:51 diarrhea gabapentin AdvReac Intermediate stomach Verified 07/24/23 07:51 pain lisinopril AdvReac cough Verified 07/24/23 07:51 Home Medication Medication Instructions Recorded cholecalciferol (vitamin D3) 25 1,000 unit PO DAILY 06/26/15 mcg (1,000 unit) chewable tablet metformin 1,000 mg tablet 1,000 mg PO BID 10/01/18 (Glucophage) acetaminophen 500 mg tablet 1,000 mg (2 x 500 mg) PO Q8H PRN 04/18/20 pain #90 tabs blood sugar diagnostic (Blood #10 09/07/20 Glucose Test strips) blood-glucose meter #1 09/07/20 lancets (Fingerstix Lancets) #100 09/07/20 losartan 25 mg tablet 50 mg PO DAILY 04/18/21 atorvastatin 20 mg tablet (Lipitor) 20 mg PO QHS 09/04/22 cyanocobalamin (vitamin B-12) 1,000 mcg subcut QMONTH 09/04/22 1,000 mcg/mL injection solution duloxetine 60 mg capsule,delayed 60 mg PO DAILY 09/04/22 release omeprazole 20 mg capsule,delayed 20 mg PO DAILY 09/04/22 release levothyroxine 112 mcg capsule 100 mcg PO DAILY 01/22/23 ferrous sulfate 325 mg (65 mg 325 mg PO DAILY 02/25/23 iron) tablet semaglutide 0.25 mg or 0.5 mg (2 0.25 mg subcut QWEEK 07/02/23 mg/1.5 mL) subcutaneous pen injector (Ozempic) Current Visit Medications: Current Medications Generic Name Dose Route Start Last Admin Trade Name Freq PRN Reason Stop Dose Admin Hyoscyamine Sulfate 0.125 mg 07/23/23 17:28 Hyoscyamine 0.125 Mg Sl/Oral/Chew SL 08/22/23 17:27 DIRECTED PRN Ringer's Solution 1,000 mls @ 80 mls/hr 07/24/23 06:00 IV 07/24/23 23:59 [facility] IV Miscellaneous Supplies 1 each 07/24/23 06:00 Iv Access IV 07/24/23 23:59 DIRECTED ELLEN Ondansetron HCl 4 mg 07/23/23 17:28 Ondansetron 4 Mg/2 Ml Vial IVP 08/22/23 17:27 Q4H PRN PRN Nausea / Vomiting Sodium Chloride 0 ml 07/24/23 06:00 Normal Saline Flush 10 Ml Syr IV 07/24/23 23:59 PRN PRN Sodium Chloride 0 ml 07/24/23 06:00 Normal Saline 10 Ml Vial IJ 07/24/23 23:59 DIRECTED PRN Sterile Water 0 ml 07/24/23 06:00 Water,Injection,Sterile 10 Ml Vial IJ 07/24/23 23:59 DIRECTED PRN PFSH Active Problems Active Problems: Problem Status Onset Code Encounter for screening colonoscopy Z12.11 Laceration of left little finger ~01/25/23 S61.217A Pneumonia J18.9 Pleural mass J94.8 Pleural thickening Vitamin B12 deficiency E53.8 Arthritis of hand M19.049 Fatigue R53.83 Dyspnea on exertion R06.00 Arthrofibrosis of total knee arthroplasty T84.82XA History of total left knee replacement 04/18/20 Z96.652 GERD (gastroesophageal reflux disease) K21.9 Trigger finger, right middle finger M65.331 Abdominal pain R10.9 Left ankle sprain S93.402A Osteoarthritis of right knee M17.11 Diarrhea R19.7 Anxiety F41.9 Medical History Medical History Pain, joint, shoulder, right Depression Nausea Hand joint pain Tubular adenoma of colon Asthma Vitamin D deficiency Hypertension Hx of cardiac murmur diagnosed when Diabetes type 2, controlled Pleural scarring chronic right chest pt. is unsure of this Restless leg syndrome Neuropathy associated with Xycsten-Gbcxs-Huyvh syndrome Hypothyroid Hyperlipidemia Onychomycosis Tinea pedis Hx of bronchitis Ilesvby-Ehqvi-Bnhyp disease pt. states MD does not think she has Surgical History Surgical History Hx of esophagogastroduodenoscopy bone graft left hip Ligation of fallopian tube Open Carpal Tunnel release bilateral Colonoscopy - MAC (08/17/17) Tobacco Smoking/Tobacco Use Status: Former Tobacco Use Alcohol Alcohol Intake: current Alcohol intake frequency: holidays/special occasions only Alcohol type: hard liquor Substance Use Substance use: Never Substance use type: does not use Vital Signs and Lab Results Vital Signs Most Recent Vital Signs in EMR: Most Recent Vital Signs Temp Pulse Resp BP Pulse Ox 36.3 C L 102 H 18 145/74 H 98 07/24/23 07:35 07/24/23 07:35 07/24/23 07:35 07/24/23 07:35 07/24/23 07:35 Point of Care Results Point of Care Results: Finger Stick Blood Glucose 198 07/24/23 07:50 Lab Results Blood Type / Crossmatch: No Data to Display Complete Blood Count: No Data to Display Complete Metabolic Panel: No Data to Display Liver Function Panel: No Data to Display Coagulation Panel: No Data to Display Cardiac Panel: No Data to Display Arterial Blood Gas: No Data to Display Venous Blood Gas: No Data to Display Pancreas Panel: No Data to Display Thyroid Panel: No Data to Display Infectious Disease: No Data to Display Blood Cultures: No Data to Display Toxicology Panel: No Data to Display Imaging and Studies Imaging and Studies Study information below may be from another EMR and interpreted by another provider. Please see original notes in EMR for more complete details. Echocardiogram Summary: Date of Exam: 09/18/20 Sex: F Admission Date: 09/18/20 : 1955 Age: 65 APPROVED REPORT EXAM: Comprehensive 2D, Doppler, and color-flow Echocardiogram Patient Location: Out-Patient Php Programmer: Lo Jackson RDCS (AE) Indications: Dyspnea on exertion, Ankle swelling Other Information Study Quality: Fair. Technically limited study due to body habitus. Conclusion Left Ventricle : The left ventricle is normal size. The left ventricular systolic function is normal. The left ventricular ejection fraction is within the normal range. There is normal left ventricular wall thickness. There is normal LV segmental wall motion. The left ventricular diastolic function is normal. LVEF is 60%. Right Ventricle : Right ventricle is grossly normal in size. Right ventricular systolic function is grossly normal. Atria : The left atrium size is normal. The right atrium size is normal. Valves: There are no hemodynamically significant valvular lesions. Great Vessels : The aortic root is normal in size. The ascending aorta is mildly dilated. IVC is normal in size and collapses >50% with inspiration. Please see remainder of study for further details. Pulmonary Function Summary: Date of service: 09/14/20 Time of Service: 08:16 Pulmonary Function Test Result Interpretation Spirometry: There is no airflow limitation. There is a reduced FVC and FEV1. There is no significant improvement with bronchodilator therapy. Lung Volumes: There is mildly reduced lung volumes. Diffusion Capacity: Diffusion is within normal limits. Airway Pressure: Airway resistance as measured by sGaw is within normal limits. Impression Pulmonary function testing is consistent with mild restrictive disease. Recommend clinical correlation. Anesthesia Assessment and Plan Anesthesia History Personal History: No History of Anesthesia Complications and Pseudocholinesterase Deficiency Family History: No Family History of Anesthesia Complications Exercise Tolerance Exercise Tolerance: Metabolic Equivalents>4 Pertinent Negatives Pertinent Negatives: No Symptoms of GERD and No Major Cardiovascular Symptoms or Complaints Cardiac & Pulmonary Exam Cardiac Exam: Normal S1/S2 Heart Sounds Pulmonary Exam: Clear Bilateral Breath Sounds Implantable Cardiac Device Does patient have a Pacemaker or an ICD?: No Airway Exam Known Difficult Airway: No Mallampati Class: 1 Mouth Opening: Normal (> 3cm) Thyromental Distance: Greater than 3 cm Neck Range of Motion: Full ROM Neck Circumference: Normal Teeth Condition: Normal Dentition ASA Classification ASA Score: ASA 2 Emergency Case?: No NPO Status NPO Status: NPO Clears >2 hours, Solids >8 hours Anesthesia Plan Resuscitation Status: Full Code Anesthesia Technique: General Anesthesia Airway Planned: Natural Airway Monitors Used: Standard Monitors
[2023-07-24] MEDS: Lactated Ringers 1,000 ML 80 ML IV (08:06)
[2023-07-24 09:27] VITALS: BP 142/76; PULSE 100; RESP 18; TEMP 36; O2SAT 97
[2023-07-24 09:52] VITALS: BP 141/71; PULSE 88; RESP 18; TEMP 36.2; O2SAT 99
--- NOTE | 2023-07-24 10:04 | W.ANESPOSTOP ---
Postoperative Evaluation Date, Time and Location Date Performed: 07/24/23 Time Performed: 09:52 Patient Location: Day Surgery Unit Vital Signs Most Recent Imported Vital Signs: Most Recent Vital Signs Temp Pulse Resp BP Pulse Ox 36.2 C L 88 18 141/71 H 99 07/24/23 09:52 07/24/23 09:52 07/24/23 09:52 07/24/23 09:52 07/24/23 09:52 Pain Score Most Recent Pain Score: Most Recent Pain Score Pain Level 0 07/24/23 09:52 Assessment Mental Status: Awake (Alert & Oriented to Patient Baseline) Airway and Respiratory Function: Patent airway with normal (patient baseline) respiratory exam Cardiovascular Function: Hemodynamically Stable Hydration Status: Adequately Hydrated Nausea & Vomiting: No Nausea or Vomiting Pain: Pt. Denies Any Pain Peripheral Nerve Block: Patient did not receive a nerve block
== END 2023-07-24 10:13 | disposition home or self-care (01) ==
LOC: SUR 07:32
PROVIDERS: PCP Family Medicine; Visit Provider Surgery
PROC: 0DJD8ZZ Inspection of Lower Intestinal Tract, Via Natural or Artificial Opening Endoscopic (ICD-10-PCS; CPT 45378; principal; 2023-07-24 09:00)
DX: Z12.11 Encounter for screening for malignant neoplasm of colon (principal); K57.30 Diverticulosis of large intestine without perforation or abscess without bleeding; K64.9 Unspecified hemorrhoids
CPT/HCPCS: G0121; J1805; J2704

== ENCOUNTER 2023-09-15 10:57 | Outpatient (REF) | payer OTHER, SELFPAY ==
[2023-09-15 16:02] LABS: Hemoglobin A1C 8.1 % (<5.7)
[2023-09-15 16:03] LABS: ALT 27 U/L (14-59); AST 13 U/L (15-37); Albumin 3.6 g/dL (3.4-5.0); Alkaline Phosphatase 123 U/L (46-116); Anion Gap 7.5 mmol/L (3-11); BUN 9 mg/dL (7-18); Bilirubin, Total 0.43 mg/dL (0.2-1.0); CO2 29.5 mmol/L (21.0-32.0); CREATININE 0.6 mg/dL (0.55-1.02); Calcium 8.8 mg/dL (8.5-10.1); Chloride 104 mmol/L (98-107); Estimated GFR 98.93 (mL/min/1.73m2); Glucose 213 mg/dL (74-106); Potassium 4.2 mmol/L (3.5-5.1); Sodium 141 mmol/L (136-145); TSH (W/Ref FT4) 0.04 uIU/mL (0.36-3.74); Total Protein 6.8 g/dL (6.4-8.2)
[2023-09-15 16:41] LABS: FREE T4 1.32 ng/dL (0.76-1.46)
== END 2023-09-15 10:58 | disposition home or self-care (01) ==
LOC: NCHCN 10:57
PROVIDERS: PCP Family Medicine; Visit Provider Family Medicine
DX: E11.9 Type 2 diabetes mellitus without complications (principal); E03.9 Hypothyroidism, unspecified; I10 Essential (primary) hypertension
CPT/HCPCS: 80053; 83036; 84439; 84443

== ENCOUNTER 2023-12-21 15:11 | Outpatient (CLI) | payer OTHER, SELFPAY ==
[2023-12-21 14:34] LABS: Hemoglobin A1C 7.6 % (<5.7)
[2023-12-21 14:43] LABS: TSH (W/Ref FT4) 1.11 uIU/mL (0.36-3.74)
== END 2023-12-21 15:12 | disposition home or self-care (01) ==
LOC: LBO 15:12
PROVIDERS: PCP Family Medicine; Visit Provider Family Medicine
DX: E11.9 Type 2 diabetes mellitus without complications (principal); E03.9 Hypothyroidism, unspecified
CPT/HCPCS: 36415; 83036; 84443

== ENCOUNTER 2024-03-28 13:19 | Outpatient (REF) | payer OTHER, SELFPAY ==
[2024-03-28 19:26] LABS: COMMENT (LAB VIEW ONLY) 93.14 mg/dL; Microalb ug/mg Crea 18.1 ug/mg Cr
== END 2024-03-28 13:20 | disposition home or self-care (01) ==
LOC: NCHCN 13:19
PROVIDERS: PCP Family Medicine; Visit Provider Family Medicine
DX: E11.9 Type 2 diabetes mellitus without complications (principal)
CPT/HCPCS: 82043; 82570

== ENCOUNTER 2024-08-04 01:04 | Outpatient (CLI) | payer OTHER, SELFPAY ==
--- NOTE | 2024-08-04 | DI.MAMMO_ITS ---
Exam(s) MAMMO SCREENING EXAM: MAMMO SCREENING CLINICAL HISTORY: Screening, Z12.31. TECHNIQUE: Bilateral full field digital CC and MLO mammographic images were obtained with 3D tomosynthesis and utilizing computer aided detection (CAD). COMPARISON: Prior mammograms were reviewed. FINDINGS: There has been no significant change in the appearance and distribution of the fibroglandular tissue. Small benign-appearing nodules in both breasts remain stable from prior mammograms. There are no new spiculated masses nor malignant appearing microcalcification groups. There is no significant architectural distortion nor skin thickening-retraction. IMPRESSION: Stable benign findings. No radiographic evidence of malignancy. BI-RADS Category 2 - Benign Findings Breast Density - Category A - The breast are almost entirely fatty. Breast density Category C or D implies that the patient has dense breast tissue. Dense breast tissue can make it harder to find cancer on a mammogram. Dense breast tissue is also associated with an increased risk of breast cancer. This information about the result of the mammogram report was provided to the patient to raise their awareness. Use this report when you speak with the patient about their risks for breast cancer, which includes their family history. At that time, you may recommend additional screening tests (Ultrasound or MRI) as these tests may add significant information. A negative radiographic report should not delay biopsy if a dominant or clinically suspicious mass is present. Up to ten percent of cancers are not identified on mammography. A negative report may reinforce clinical impression. Adenosis and dense breasts may obscure an underlying neoplasm. False positive reports average 6 to 10%. Patient will receive a letter notifying them of these results.
== END 2024-08-04 01:24 ==
LOC: DI 01:04
PROVIDERS: PCP Family Medicine; Visit Provider Family Medicine
DX: Z12.31 Encounter for screening mammogram for malignant neoplasm of breast (principal); R92.313 Mammographic fatty tissue density, bilateral breasts
CPT/HCPCS: 77063; 77067

== ENCOUNTER 2024-10-17 14:21 | Outpatient (CLI) | payer MEDICARE, SELFPAY ==
[2024-10-17 12:24] LABS: HCT 37.4 % (36.0-46.0); HGB 12.2 g/dL (11.2-15.7); MCH 29.5 pg (27.0-33.0); MCHC 32.6 % (32.0-36.0); MCV 91 fL (80-95); MPV 10.5 fL (8.0-11.0); Platelet Count 281 10^3/uL (130-400); RBC 4.13 10^6/uL (3.93-5.22); RDW 13.5 % (11.7-14.6); RDW-SD 44.6 fL; WBC 9.40 10^3/uL (4.4-10.8)
[2024-10-17 13:26] LABS: ALT 26 U/L (14-59); AST 13 U/L (15-37); Albumin 3.6 g/dL (3.4-5.0); Alkaline Phosphatase 117 U/L (46-116); Anion Gap 9.0 mmol/L (3-11); BUN 9 mg/dL (7-18); Bilirubin, Total 0.6 mg/dL (0.2-1.0); CO2 31.0 mmol/L (21.0-32.0); Calcium 8.3 mg/dL (8.5-10.1); Chloride 104 mmol/L (98-107); Estimated GFR 102.73 (mL/min/1.73m2); Glucose 172 mg/dL (74-106); Potassium 3.1 mmol/L (3.5-5.1); Sodium 144 mmol/L (136-145); TSH (W/Ref FT4) 1.32 uIU/mL (0.36-3.74); Total Protein 7.2 g/dL (6.4-8.2); Vitamin B12 723 pg/mL (193-986)
[2024-10-17 13:31] LABS: Hemoglobin A1C 7.4 % (<5.7)
== END 2024-10-17 14:22 | disposition home or self-care (01) ==
LOC: LBO 14:22
PROVIDERS: PCP Family Medicine; Visit Provider Family Medicine
DX: I10 Essential (primary) hypertension (principal); E03.8 Other specified hypothyroidism; E53.8 Deficiency of other specified B group vitamins; E11.9 Type 2 diabetes mellitus without complications
CPT/HCPCS: 36415; 80053; 85027; 82607; 83036; 84443

== ENCOUNTER 2024-11-02 14:33 | Outpatient (REF) | payer MEDICARE, SELFPAY ==
[2024-11-02 16:13] LABS: Anion Gap 9.1 mmol/L (3-11); BUN 11 mg/dL (7-18); CO2 30.9 mmol/L (21.0-32.0); Calcium 9.5 mg/dL (8.5-10.1); Chloride 105 mmol/L (98-107); Estimated GFR 98.32 (mL/min/1.73m2); Glucose 216 mg/dL (74-106); Potassium 4.1 mmol/L (3.5-5.1); Sodium 145 mmol/L (136-145)
== END 2024-11-02 14:34 | disposition home or self-care (01) ==
LOC: NCHCN 14:33
PROVIDERS: PCP Family Medicine; Visit Provider Family Medicine
DX: E87.6 Hypokalemia (principal)
CPT/HCPCS: 80048